=== PATIENT | female | born 1980 | race Caucasian/White ===

== ENCOUNTER 2020-11-27 01:17 | Emergency (ER) | payer SELFPAY ==
[2020-11-27 01:37] VITALS: BP 144/64; PULSE 86; RESP 16; TEMP 36.3; O2SAT 95; BMI 24.7
[2020-11-27 02:30] VITALS: BP 114/66; PULSE 55; RESP 18; O2SAT 97
[2020-11-27 02:35] LABS: Basophils # 0.1 10^3/uL (0.0-0.1); Basophils % 0.7 %; Eosinophils # 0.1 10^3/uL (0.0-0.8); Eosinophils % 1.1 %; Hematocrit 45.6 % (37.0-47.0); Hemoglobin 15.2 g/dL (11.5-15.3); Lymphocytes # 1.5 10^3/uL (0.8-4.8); Lymphocytes % 20.3 %; Mean Corpuscular HGB Conc 33.3 g/dL (30.0-36.0); Mean Corpuscular Hemoglobin 32.1 pg (28.0-34.0); Mean Corpuscular Volume 96.4 fL (81-99); Mean Platelet Volume 10.9 fL (7.4-10.4); Monocytes # 0.4 10^3/uL (0.2-0.9); Monocytes % 5.6 %; Neutrophils # 5.19 10^3/uL (1.8-7.7); Neutrophils % 72.2 %; Nucleated Red Blood Cells % 0 %; Platelet Count 237 10^3/cmm (130-400); Red Blood Count 4.73 10^6/uL (4.1-5.3); Red Cell Distribution Width 12.1 % (12.1-15.1); White Blood Count 7.2 10^3/uL (4.0-10.0)
[2020-11-27 02:55] LABS: HCG, Serum Qual Negative (Negative)
[2020-11-27] MEDS: lidocaine 2% viscous 15 ML, aluminum-mag hydrox-simethicon 30 ML, sucralfate oral liq 1 GM PO (02:55)
[2020-11-27] MEDS: ondansetron 2 mg/ML SDV 2 mL 4 MG IVP (02:55)
[2020-11-27 02:59] LABS: Alanine Aminotransferase 7 U/L (0-33); Albumin Level 4.3 g/dL (3.5-5.2); Alkaline Phosphatase 79 IU/L (35-105); Anion Gap 14.2 (5-19); Aspartate Amino Transferase 11 U/L (0-32); Blood Urea Nitrogen 11 mg/dL (6-20); C Reactive Protein 4.5 mg/L (0.0-4.9); Calcium 8.8 mg/dL (8.5-10.5); Carbon Dioxide 24 mmol/L (22-29); Chloride 102 mmol/L (98-107); Globulin 3.3 g/dL (1.3-4.6); Glomerular Filtration Rate 93.2 mL/min (90-130); Glucose 88 mg/dL (65-115); Lipase 16 U/L (13-60); Osmolality Calculated 281 mOsm/kg (285-295); Potassium 4.2 mmol/L (3.5-5.1); Sodium 136 mmol/L (136-145); Total Bilirubin 0.4 mg/dL (0.15-1.2); Total Protein 7.6 g/dL (6.6-8.7)
[2020-11-27 03:06] LABS: Procalcitonin 0.02 ng/mL (0-0.5)
[2020-11-27 03:20] LABS: Add Urine Microscopic? YES; Bilirubin Urine 1+ (Negative); Blood Urine Neg (Negative); Glucose Urine UA Norm (Normal); Ketones Urine 1+ (Negative); Leukocyte Esterase Urine Trace (Negative); Nitrate Urine Negative (Negative); Protein Urine Neg (Negative); Urine Appearance Clear (CLEAR); Urine Color Yellow (Yellow); Urobilinogen Urine 4 mg/dL (Negative); pH Urine 5 (5-7)
[2020-11-27 03:22] LABS: Add Urine Culture? No; Bacteria Urine 1+ /hpf; Mucus Urine 3+ /hpf; RBC Urine 0-4 /hpf (0-2); Squamous Epithelial Cell Urine 15-25 /hpf (0-5); WBC Urine 0-4 /hpf (0-5)
[2020-11-27 03:31] VITALS: BP 96/64; PULSE 50; RESP 18; O2SAT 95
--- NOTE | 2020-11-27 04:52 | ED_ITS ---
HPI - Abdominal Pain General: Chief Complaint: Abdominal Pain Stated Complaint: ABD Pain\Nausea Time Seen by Provider: 11/27/20 02:27 History of Present Illness: HPI narrative: Healthy 40-year-old female complains of epigastric pain and vomiting for the last 12 hours or so. No fever. No real diarrhea. No cough or shortness of breath Pertinent past history: other Onset (ago): hour(s) Pain Consistency: constant Location: Epigastric and Periumbilical Severity: moderate Quality: cramping and stabbing Radiation: back Migration to: no migration Exacerbating factors: eating Relieving factors: nothing Associated Symptoms: Reports bloating, nausea and vomiting; Denies coffee ground emesis, constipation, diarrhea, fever(s), hematochezia and hematuria Review of Systems Const: Denies: fever(s) Card: Denies: chest pain or palpitations Resp: Denies: dyspnea, productive cough or non-productive cough GI: Reports: nausea, vomiting and bloating; Denies: coffee ground emesis, diarrhea, constipation or hematochezia : Denies: hematuria Physical Exam Const: GENERAL APPEARANCE: well developed ORIENTATION/CONSCIOUSNESS: Yes oriented to person, Yes oriented to place and Yes oriented to time HENMT: COMMON NORMALS: normocephalic, external ears normal and Normal external nose present HEAD & SCALP: normocephalic FACE & SINUS: normal facial exam NOSE: Normal external nose present and No nasal discharge present EXTERNAL EAR: Yes external ears normal THROAT: posterior oropharynx normal; no peritonsillar mass Eye: COMMON NORMALS: Equal, round and reactive pupils present, EOMs intact bilaterally and conjunctivae normal EYELID: eyelids normal CONJUNCTIVA: Yes conjunctivae normal PUPIL: Yes Equal, round and reactive pupils present Neck/C-Spine: GENERAL: No tracheal deviation Chest: COMMONS NORMALS: normal inspection of the chest CHEST: No tenderness Resp: COMMON NORMALS: clear to auscultation bilaterally EFFORT & INSPECTION: No tachypneic, No respiratory distress, No retractions, No uses accessory muscles and No tracheal deviation AUSCULTATION: clear to auscultation bilaterally, no rhonchi, no wheezes and lung sounds not diminished Cardio: COMMON NORMALS: regular rate and regular rhythm RATE: regular rate RHYTHM: regular rhythm HEART SOUNDS: no murmurs PERIPHERAL PULSES: radial pulses present GI: INSPECTION: No abdominal distension AUSCULTATION: No Hyperactive bowel sounds present and No Hypoactive bowel sounds present PALPATION: Yes Tenderness to palpation present (GI) (epigastric), No Guarding due to palpation present (GI) and No Rigid due to palpation PERCUSSION: no dullness to percussion and no tympanic to percussion Neuro: SENSORIUM/ORIENTATION: Yes oriented to person, Yes oriented to place and Yes oriented to time Psych: COMMON NORMALS: mental status grossly normal Skin: COMMON NORMALS: no rashes or lesions noted GENERAL SKIN EXAM: no rashes or lesions noted Course Vital Signs: Vital signs: Vital Signs Temperature 97.3 F L 11/27/20 01:37 Pulse Rate 50 L 11/27/20 03:31 Respiratory Rate 18 11/27/20 03:31 Blood Pressure 96/64 11/27/20 03:31 Pulse Oximetry 95 11/27/20 03:31 MDM - Abdominal Pain MDM Narrative: Medical decision making narrative: 40-year-old female with epigastric pain, tenderness, and vomiting. White blood cell count of 7.2 other laboratory is normal. She improved with GI cocktail. She will be allowed home with Prevacid, Carafate, and gastro, symptomatic treatment for gastritis. She was not tender over her gallbladder. Lab Data: Labs: Lab Results 11/27/20 11/27/20 11/27/20 Range/Units 02:25 02:25 02:25 WBC 7.2 (4.0-10.0) 10^3/ uL RBC 4.73 (4.1-5.3) 10^6/u L Hgb 15.2 (11.5-15.3) g/dL Hct 45.6 (37.0-47.0) % MCV 96.4 (81-99) fL MCH 32.1 (28.0-34.0) pg MCHC 33.3 (30.0-36.0) g/dL RDW 12.1 (12.1-15.1) % Plt Count 237 (130-400) 10^3/c mm MPV 10.9 H (7.4-10.4) fL Neut % (Auto) 72.2 % Lymph % (Auto) 20.3 % [place] % (Auto) 5.6 % Eos % (Auto) 1.1 % Baso % (Auto) 0.7 % Neut # (Auto) 5.19 (1.8-7.7) 10^3/u L Lymph # (Auto) 1.5 (0.8-4.8) 10^3/u L [place] # (Auto) 0.4 (0.2-0.9) 10^3/u L Eos # (Auto) 0.1 (0.0-0.8) 10^3/u L Baso # (Auto) 0.1 (0.0-0.1) 10^3/u L Nucleated RBC % (a uto) 0 % Nucleated RBCs # 0.0 /100WBC Sodium 136 (136-145) mmol/L Potassium 4.2 (3.5-5.1) mmol/L Chloride 102 (98-107) mmol/L Carbon Dioxide 24 (22-29) mmol/L Anion Gap 14.2 (5-19) BUN 11 (6-20) mg/dL Creatinine 0.7 (0.5-0.9) mg/dL GFR Calculation 93.2 (90-130) mL/min Glucose 88 (65-115) mg/dL Calculated Osmolal ity 281 L (285-295) mOsm/k g Calcium 8.8 (8.5-10.5) mg/dL Total Bilirubin 0.4 (0.15-1.2) mg/dL AST 11 (0-32) U/L ALT 7 (0-33) U/L Alkaline Phosphata se 79 (35-105) IU/L C-Reactive Protein 4.5 (0.0-4.9) mg/L Total Protein 7.6 (6.6-8.7) g/dL Albumin 4.3 (3.5-5.2) g/dL Globulin 3.3 (1.3-4.6) g/dL Lipase 16 (13-60) U/L Procalcitonin 0.02 (0-0.5) ng/mL HCG, Qual Negative (Negative) Urine Color (Yellow) Urine Appearance (CLEAR) Urine pH (5-7) Ur Specific Gravit y (1.005-1.030) Urine Protein (Negative) Urine Glucose (UA) (Normal) Urine Ketones (Negative) Urine Blood (Negative) Urine Nitrate (Negative) Urine Bilirubin (Negative) Urine Urobilinogen (Negative) mg/dL Ur Leukocyte Casi ase (Negative) Urine RBC (0-2) /hpf Urine WBC (0-5) /hpf Ur Squamous Epith Cells (0-5) /hpf Amorphous Sediment Urine Bacteria (NONE) /hpf Urine Mucus /hpf 11/27/20 Range/Units 02:25 WBC (4.0-10.0) 10^3/ uL RBC (4.1-5.3) 10^6/u L Hgb (11.5-15.3) g/dL Hct (37.0-47.0) % MCV (81-99) fL MCH (28.0-34.0) pg MCHC (30.0-36.0) g/dL RDW (12.1-15.1) % Plt Count (130-400) 10^3/c mm MPV (7.4-10.4) fL Neut % (Auto) % Lymph % (Auto) % [place] % (Auto) % Eos % (Auto) % Baso % (Auto) % Neut # (Auto) (1.8-7.7) 10^3/u L Lymph # (Auto) (0.8-4.8) 10^3/u L [place] # (Auto) (0.2-0.9) 10^3/u L Eos # (Auto) (0.0-0.8) 10^3/u L Baso # (Auto) (0.0-0.1) 10^3/u L Nucleated RBC % (a uto) % Nucleated RBCs # /100WBC Sodium (136-145) mmol/L Potassium (3.5-5.1) mmol/L Chloride (98-107) mmol/L Carbon Dioxide (22-29) mmol/L Anion Gap (5-19) BUN (6-20) mg/dL Creatinine (0.5-0.9) mg/dL GFR Calculation (90-130) mL/min Glucose (65-115) mg/dL Calculated Osmolal ity (285-295) mOsm/k g Calcium (8.5-10.5) mg/dL Total Bilirubin (0.15-1.2) mg/dL AST (0-32) U/L ALT (0-33) U/L Alkaline Phosphata se (35-105) IU/L C-Reactive Protein (0.0-4.9) mg/L Total Protein (6.6-8.7) g/dL Albumin (3.5-5.2) g/dL Globulin (1.3-4.6) g/dL Lipase (13-60) U/L Procalcitonin (0-0.5) ng/mL HCG, Qual (Negative) Urine Color Yellow (Yellow) Urine Appearance Clear (CLEAR) Urine pH 5 (5-7) Ur Specific Gravit y 1.030 (1.005-1.030) Urine Protein Neg (Negative) Urine Glucose (UA) Norm (Normal) Urine Ketones 1+ H (Negative) Urine Blood Neg (Negative) Urine Nitrate Negative (Negative) Urine Bilirubin 1+ H (Negative) Urine Urobilinogen 4 H (Negative) mg/dL Ur Leukocyte Casi ase Trace H (Negative) Urine RBC 0-4 H (0-2) /hpf Urine WBC 0-4 H (0-5) /hpf Ur Squamous Epith Cells 15-25 H (0-5) /hpf Amorphous Sediment Not Reportable Urine Bacteria 1+ H (NONE) /hpf Urine Mucus 3+ /hpf Discharge Plan Discharge Patient Disposition: Home Clinical Impression: Gastritis Qualifiers: Gastritis type: unspecified gastritis Chronicity: acute Gastritis bleeding: without bleeding Qualified Code(s): K29.00 - Acute gastritis without bleeding Condition: Stable Prescriptions: New Prevacid 30 mg capsule,delayed release(DR/EC) 30 mg PO DAILY Qty: 30 RF: 0 Carafate 1 gram tablet 1 g PO TID 28 Days Qty: 84 RF: 0 Zofran 4 mg tablet 4 mg PO Q6H PRN (Reason: nausea and vomiting) Qty: 10 RF: 0 Discharge Orders: Discharge ED (Routine); Ordered 11/27/20 Ordered By: Bertrand Thompson Discharge Diet: Advance as tolerated Discharge Activity: Increase activity as tolerated Patient Instructions: Gastritis (ED) Activity Restrictions/Additional Instructions: Return for fever greater than 100, vomiting liquids or medications despite treatment, worsening pain despite treatment, any other concerning conditions. Coding Level of Care Code ED Carrot Tier for Royer Bowman
[2020-11-27 15:25] LABS: Coronavirus Test Green County Not Detected
== END 2020-11-27 04:21 | disposition home or self-care (01) ==
PROVIDERS: Emergency Provider Emergency Medicine
DX: K29.00 Acute gastritis without bleeding (principal); Z20.822 Contact with and (suspected) exposure to COVID-19
CPT/HCPCS: 80053; 81001; 83690; 84145; 84703; 85025; 86140; 87635; 96374; 99283; J2405

== ENCOUNTER 2021-05-18 12:46 | Emergency (ER) | payer SELFPAY ==
[2021-05-18 13:03] VITALS: BP 129/79; PULSE 90; RESP 16; TEMP 36.8; O2SAT 97; BMI 23.3
--- NOTE | 2021-05-18 13:15 | W.ED.BACK ---
HPI - Back Pain/Injury General: Chief Complaint: Back Pain/Injury Stated Complaint: Extreme ABD PAIN FELT LIKE SOMETHING BURST Time Seen by Provider: 05/18/21 13:15 Course Vital Signs: Vital signs: Vital Signs Temperature 98.3 F 05/18/21 13:03 Pulse Rate 90 05/18/21 13:03 Respiratory Rate 16 05/18/21 13:03 Blood Pressure 129/79 05/18/21 13:03 Pulse Oximetry 97 05/18/21 13:03 Discharge Plan Discharge Prescriptions: No Action Prevacid 30 mg capsule,delayed release(DR/EC) 30 mg PO DAILY Qty: 30 RF: 0 Zofran 4 mg tablet 4 mg PO Q6H PRN (Reason: nausea and vomiting) Qty: 10 RF: 0 Coding Level of Care Code ED Mobile Service Rv Technician for Royer Bowman
--- NOTE | 2021-05-18 13:57 | US_ITS ---
WS: [id number] TRANSABDOMINAL PELVIC AND TRANSVAGINAL PELVIC ULTRASOUND HISTORY: L pelvic pain COMPARISON: None available. Uterus: 9.9 cm x 5.7 cm x 5.5 cm. Normal size anteverted uterus. Small nabothian cysts along the cerv ix. Fundus of the uterus is mildly bulbous. No discrete mass identified. Endometrium: 1.4 cm. Normal homogeneity. No mass or increased fluid. Right ovary: 2.9 cm x 1.7 cm x 1.7 cm. Ovaries normal size. There are a few small follicles. Normal D oppler is present. Left ovary: 2.3 cm x 1.4 cm x 1.1 cm. Normal size ovary. There are a few small follicles. Normal vasc ularity. No free fluid is identified. Fluid-filled loops of bowel are noted bilaterally within the pelvis causing some shadowing and obscur ing the adnexa. There is a focal defect within the lower abdominal wall which is probably a scar. US/US pelvic with transvaginal IMPRESSION: 1. No acute pelvic abnormalities are identified. 2. Small bilateral ovarian follicles. 3. No free fluid.
--- NOTE | 2021-05-18 13:57 | CT_ITS ---
WS: [id number] CT LUMBAR SPINE, noncontrast. HISTORY: back pain TECHNIQUE: Contiguous 2.5 mm axial imaging are performed. Sagittal and coronal reformats are submitte d and reviewed. [facility] use at least one of these dose optimization techni ques: automated exposure control; mA and/or kV adjustment per patient size (includes targeted exams w here dose is matched to clinical indication); or iterative reconstruction. IV contrast: None DLP: 2178.31 mGy.cm COMPARISON: None available. Normal posterior lumbar alignment. No fracture or bone destruction. No significant disc space narrowi ng. No osteoblastic or osteolytic bone lesions. L1-2: Normal. L2-3: Normal. L3-4: Mild annular disc bulging and facet arthritis. L4-5: Mild annular disc bulging with a LEFT paracentral disc protrusion contacting the LEFT traversin g L5 nerve root. Mild LEFT foraminal narrowing. L5-S1: Mild broad-based disc bulging without stenosis. Visualized retroperitoneum is negative. There are a few calcifications within the abdominal aorta. CT/CT lumbar spine wo con* [id number] IMPRESSION: 1. No acute lumbar spine fracture. 2. LEFT paracentral disc protrusion at L4-5 contacting the L5 nerve root. 3. Otherwise no significant stenosis.
--- NOTE | 2021-05-18 13:58 | ED_ITS ---
HPI - Back Pain/Injury General: Chief Complaint: Back Pain/Injury Stated Complaint: Extreme ABD PAIN FELT LIKE SOMETHING BURST Time Seen by Provider: 05/18/21 13:15 Source: patient Mode of arrival: ambulatory Limitations: no limitations History of Present Illness: HPI Narrative: Patient is a 40-year-old female who presents to ED today with a complaint of back and pelvic pain. Patient tells me she has a chronic history of ovarian cysts and chronically suffers from left- sided pelvic pains. Patient states earlier today she was bent over cleaning a fireplace when she immediately felt a sharp burning sensation to her left lower back and states it felt like somebody hit her with a sledgehammer. She states pain seems to radiate down into her buttock and into her abdomen/groin. Denies radicular symptoms into her left lower extremity. She is not complaining of any vaginal bleeding. She has not had any dysuria, hematuria, frequency, hesitancy. Denies . MD elicited complaint: back pain Onset (ago): hour(s) Timing: constant Severity: severe Pain scale (0-10): 10 Quality: burning and sharp Location: left lower back Radiation: abdomen Exacerbating factors: movement Relieving factors: none Context: bending Associated symptoms: Reports abdominal pain and difficulty walking; Deny chills, dysuria, fatigue, fever(s), hematuria, nausea or vomiting Work related injury: No Review of Systems Const: Denies: fever(s), chills, body aches, fatigue or malaise Card: Denies: chest pain Resp: Denies: dyspnea GI: Reports: abdominal pain; Denies: nausea, vomiting or diarrhea : Reports: pelvic pain; Denies: flank pain, dysuria, hematuria, vaginal bleeding or vaginal discharge Musc: Reports: back pain; Denies: neck pain, extremity pain, extremity swelling, joint pain or joint swelling Skin/Breast: Denies: rash Neuro: Reports: difficulty walking; Denies: headache(s), numbness in extremities, weakness in extremities, sensory changes or dizziness Physical Exam Const: COMMON NORMALS: average body habitus, patient oriented x3, no limitations, healthy appearing, alert and well nourished GENERAL APPEARANCE: cooperative and in distress (appears uncomfortable secondary to pain) ORIENTATION/CONSCIOUSNESS: Yes awake, Yes oriented to person, Yes oriented to place and Yes oriented to time HENMT: COMMON NORMALS: normocephalic and atraumatic HEAD & SCALP: normal to inspection, normocephalic and atraumatic Resp: COMMON NORMALS: normal respiratory effort and clear to auscultation bilaterally AUSCULTATION: clear to auscultation bilaterally Cardio: COMMON NORMALS: regular rate and regular rhythm RATE: regular rate RHYTHM: regular rhythm GI: COMMON NORMALS: Normal to inspection, nondistended, normoactive bowel sounds present, Soft to palpation, No hepatosplenomegaly present and no masses INSPECTION: Yes normal to inspection PALPATION: Yes Soft to palpation, Yes Tenderness to palpation present (GI) (L lower abdomen/pelvis) and Yes No hepatosplenomegaly present : COMMON NORMALS: Yes no CVA tenderness BLADDER/KIDNEY EXAM: Yes no CVA tenderness Back/Pelvis: COMMON NORMALS: no CVA tenderness THORACIC SPINE/UPPER BACK: Yes normal to inspection, No thoracic spinal tenderness and No paraspinal muscle tenderness LUMBAR SPINE/LOWER BACK: Yes ROM limited, Yes paraspinal muscle tenderness Lumbar paraspinal muscle tenderness: left and No paraspinal muscle spasm Extremity: COMMON NORMALS: normal to inspection and full ROM GENERAL: Yes normal exam except as noted Neuro: COMMON NORMALS: patient oriented x3, moves all extremities, no focal motor deficits and no sensory deficits noted SENSORIUM/ORIENTATION: Yes alert, Yes oriented to person, Yes oriented to place and Yes oriented to time Skin: COMMON NORMALS: no rashes or lesions noted GENERAL SKIN EXAM: no rashes or lesions noted Course Vital Signs: Vital signs: Vital Signs Temperature 98.3 F 05/18/21 13:03 Pulse Rate 90 05/18/21 13:03 Respiratory Rate 16 05/18/21 13:03 Blood Pressure 129/79 05/18/21 13:03 Pulse Oximetry 97 05/18/21 13:03 MDM - Back Pain/Injury MDM Narrative: Medical decision making narrative: Patient here with complaints of severe lower back pain radiating around into her buttock and abdomen. She does report history of ovarian cysts. Patient presented in significant discomfort which was controlled with IV medications. Labs are overall fairly unremarkable. US of her pelvis is essentially normal. CT lumbar does show disc protrusion of L4-L5 which would fit with her VIKA. I have no concerns of acute intra-abdominal surgical emergencies based on her acute onset after bending over. Patient is telling me she lives alone and bathrooms are on different levels and is requesting a walker/commode. These were written. Recommend follow up with PCP. Return to ED precautions verbally given to patient. Lab Data: Labs: Lab Results 05/18/21 05/18/21 05/18/21 14:00 14:00 14:00 WBC 9.3 10^3/uL 10^3/ uL (4.0-10.0) RBC 4.35 10^6/uL 10^6 /uL (4.1-5.3) Hgb 13.8 g/dL g/dL (11.5-15.3) Hct 40.9 % % (37.0-47.0) MCV 94.0 fl fl (81-99) MCH 31.7 pg pg (28.0-34.0) MCHC 33.7 g/dL g/dL (30.0-36.0) RDW 12.7 % % (12.1-15.1) Plt Count 199 10^3/cmm 10^3 /cmm (130-400) MPV 11.3 fL H fL (7.4-10.4) Neut % (Auto) 72.4 % % Lymph % (Auto) 20.5 % % [place] % (Auto) 5.3 % % Eos % (Auto) 0.9 % % Baso % (Auto) 0.5 % % Neut # (Auto) 6.73 10^3/uL 10^3 /uL (1.8-7.7) Lymph # (Auto) 1.9 10^3/uL 10^3/ uL (0.8-4.8) [place] # (Auto) 0.5 10^3/uL 10^3/ uL (0.2-0.9) Eos # (Auto) 0.1 10^3/uL 10^3/ uL (0.0-0.8) Baso # (Auto) 0.1 10^3/uL 10^3/ uL (0.0-0.1) Nucleated RBC % (a uto) 0 % % Nucleated RBCs # 0.0 /100WBC /100W BC Sodium 133 mmol/L L mmol /L (136-145) Potassium 4.2 mmol/L mmol/L (3.5-5.1) Chloride 100 mmol/L mmol/L (98-107) Carbon Dioxide 24 mmol/L mmol/L (22-29) Anion Gap 13.2 (5-19) BUN 10 mg/dL mg/dL (6-20) Creatinine 0.7 mg/dL mg/dL (0.5-0.9) GFR Calculation 93.2 mL/min mL/mi n (90-130) Glucose 87 mg/dL mg/dL (65-115) Calculated Osmolal ity 274 mOsm/kg L mOs m/kg (285-295) Calcium 8.4 mg/dL L mg/dL (8.5-10.5) Total Bilirubin 0.3 mg/dL mg/dL (0.15-1.2) AST 48 U/L H U/L (0-32) ALT 44 U/L H U/L (0-33) Alkaline Phosphata se 81 IU/L IU/L (35-105) Total Protein 6.6 g/dL g/dL (6.6-8.7) Albumin 4.0 g/dL g/dL (3.5-5.2) Globulin 2.6 g/dL g/dL (1.3-4.6) HCG, Qual Negative (Negative) 05/18/21 15:00 WBC RBC Hgb Hct MCV MCH MCHC RDW Plt Count MPV Neut % (Auto) Lymph % (Auto) [place] % (Auto) Eos % (Auto) Baso % (Auto) Neut # (Auto) Lymph # (Auto) [place] # (Auto) Eos # (Auto) Baso # (Auto) Nucleated RBC % (a uto) Nucleated RBCs # Sodium Potassium Chloride Carbon Dioxide Anion Gap BUN Creatinine GFR Calculation Glucose Calculated Osmolal ity Calcium Total Bilirubin AST ALT Alkaline Phosphata se Total Protein Albumin Globulin HCG, Qual Negative (Negative) Imaging Data^: CT lumbar: Radiologist's impression: [address] [id number] Scan ReportSigned Patient: Jennifer Zuniga #: [id number]: [id number] t#:[id number]/Sex: 40 / FADM Date: 05/18/21Loc: ERRoom/Bed:Attending Dr: Ordering Provider/Ordering MD: Triny Barton Date of Service: 05/18/21 Procedure(s): CT lumbar spine wo con* [id number] Accession Number(s): [id number] Report Number: [id number] WS: [id number] CT LUMBAR SPINE, noncontrast. HISTORY: back pain TECHNIQUE: Contiguous 2.5 mm axial imaging are performed. Sagittal and coronal reformats are submitted and reviewed. All CT scans at [facility] use at least one of these dose optimization techniques: automated exposure control; mA and/or kV adjustment per patient size (includes targeted exams where dose is matched to clinical indication); or iterative reconstruction. IV contrast: None DLP: 2178.31 mGy.cm COMPARISON: None available. Normal posterior lumbar alignment. No fracture or bone destruction. No significant disc space narrowing. No osteoblastic or osteolytic bone lesions. L1-2: Normal. L2-3: Normal. L3-4: Mild annular disc bulging and facet arthritis. L4-5: Mild annular disc bulging with a LEFT paracentral disc protrusion contacting the LEFT traversing L5 nerve root. Mild LEFT foraminal narrowing. L5-S1: Mild broad-based disc bulging without stenosis. Visualized retroperitoneum is negative. There are a few calcifications within the abdominal aorta. CT/CT lumbar spine wo con* [id number] IMPRESSION: 1. No acute lumbar spine fracture. 2. LEFT paracentral disc protrusion at L4-5 contacting the L5 nerve root. 3. Otherwise no significant stenosis. Dictated By:Betsy Spencer DOSigned By:Betsy Spencer DOSigned Date/Time:05/18/21 1535DD/ 1531 US TV: Radiologist's impression: [facility] [place] [address].[place], [place] [address]Lkdrwoxelo ReportSigned Patient: Jennifer Zuniga #: [id number]: [id number]#:[id number]/Sex: 40 / FADM Date: 05/18/21Loc: ERRoom/Bed:Attending Dr: Ordering Provider/Ordering MD: Triny Barton Date of Service: 05/18/21 Procedure(s): US pelvic with transvaginal Accession Number(s): [id number] Report Number: [id number] WS: [id number] TRANSABDOMINAL PELVIC AND TRANSVAGINAL PELVIC ULTRASOUND HISTORY: L pelvic pain COMPARISON: None available. Uterus: 9.9 cm x 5.7 cm x 5.5 cm. Normal size anteverted uterus. Small nabothian cysts along the cervix. Fundus of the uterus is mildly bulbous. No discrete mass identified. Endometrium: 1.4 cm. Normal homogeneity. No mass or increased fluid. Right ovary: 2.9 cm x 1.7 cm x 1.7 cm. Ovaries normal size. There are a few small follicles. Normal Doppler is present. Left ovary: 2.3 cm x 1.4 cm x 1.1 cm. Normal size ovary. There are a few small follicles. Normal vascularity. No free fluid is identified. Fluid-filled loops of bowel are noted bilaterally within the pelvis causing some shadowing and obscuring the adnexa. There is a focal defect within the lower abdominal wall which is probably a scar. US/US pelvic with transvaginal IMPRESSION: 1. No acute pelvic abnormalities are identified. 2. Small bilateral ovarian follicles. 3. No free fluid. Dictated By:Betsy Spencer DOSigned By:Betsy Spencer DOSigned Date/Time:05/18/211546DD/ 154 Discharge Plan Discharge Patient Disposition: Home Clinical Impression: L4-L5 disc bulge Condition: Stable Prescriptions: New cyclobenzaprine 10 mg tablet 10 mg PO TID Qty: 14 RF: 0 ibuprofen 800 mg tablet 800 mg PO Q8H PRN (Reason: pain) Qty: 20 RF: 0 Medrol (Timo) 4 mg tablets,dose pack See Rx Instructions .ROUTE .COMPLEX Qty: 21 RF: 0 No Action Prevacid 30 mg capsule,delayed release(DR/EC) 30 mg PO DAILY Qty: 30 RF: 0 Zofran 4 mg tablet 4 mg PO Q6H PRN (Reason: nausea and vomiting) Qty: 10 RF: 0 Discharge Orders: Discharge ED (Routine); Ordered 05/18/21 Ordered By: Triny Barton Other Ambulatory Orders: DME: [employer] (Order) Location: None Selected Ordered By: Triny Barton DME: Walker (Order) Location: None Selected Ordered By: Triny Barton Activity Restrictions/Additional Instructions: PLEASE FOLLOW UP WITH PRIMARY CARE IN 1-2 WEEKS IF SYMPTOMS PERSIST. Coding Level of Care Code ED Substation Technician for Anag Fwd Exam Comprehensive
[2021-05-18 14:18] LABS: Basophils # 0.1 10^3/uL (0.0-0.1); Basophils % 0.5 %; Eosinophils # 0.1 10^3/uL (0.0-0.8); Eosinophils % 0.9 %; Hematocrit 40.9 % (37.0-47.0); Hemoglobin 13.8 g/dL (11.5-15.3); Lymphocytes # 1.9 10^3/uL (0.8-4.8); Lymphocytes % 20.5 %; Mean Corpuscular HGB Conc 33.7 g/dL (30.0-36.0); Mean Corpuscular Hemoglobin 31.7 pg (28.0-34.0); Mean Platelet Volume 11.3 fL (7.4-10.4); Monocytes # 0.5 10^3/uL (0.2-0.9); Monocytes % 5.3 %; Neutrophils # 6.73 10^3/uL (1.8-7.7); Neutrophils % 72.4 %; Nucleated Red Blood Cells % 0 %; Platelet Count 199 10^3/cmm (130-400); Red Blood Count 4.35 10^6/uL (4.1-5.3); Red Cell Distribution Width 12.7 % (12.1-15.1); White Blood Count 9.3 10^3/uL (4.0-10.0)
[2021-05-18 14:34] LABS: HCG, Serum Qual Negative (Negative)
[2021-05-18 14:37] LABS: Alanine Aminotransferase 44 U/L (0-33); Alkaline Phosphatase 81 IU/L (35-105); Anion Gap 13.2 (5-19); Aspartate Amino Transferase 48 U/L (0-32); Blood Urea Nitrogen 10 mg/dL (6-20); Calcium 8.4 mg/dL (8.5-10.5); Carbon Dioxide 24 mmol/L (22-29); Chloride 100 mmol/L (98-107); Globulin 2.6 g/dL (1.3-4.6); Glomerular Filtration Rate 93.2 mL/min (90-130); Glucose 87 mg/dL (65-115); Osmolality Calculated 274 mOsm/kg (285-295); Potassium 4.2 mmol/L (3.5-5.1); Sodium 133 mmol/L (136-145); Total Bilirubin 0.3 mg/dL (0.15-1.2); Total Protein 6.6 g/dL (6.6-8.7)
[2021-05-18 15:13] LABS: HCG Qualitative Urine. Negative (Negative)
[2021-05-18 16:53] LABS: Add Urine Microscopic? YES; Bilirubin Urine Neg (Negative); Blood Urine Neg (Negative); Glucose Urine UA Norm (Normal); Ketones Urine Negative (Negative); Leukocyte Esterase Urine Negative (Negative); Nitrate Urine Negative (Negative); Protein Urine Neg (Negative); RBC Urine RARE /hpf (0-2); Urine Appearance SL Hazy (CLEAR); Urine Color Straw (Yellow); Urobilinogen Urine Neg (Negative); WBC Urine RARE /hpf (0-5); pH Urine 5 (5-7)
[2021-05-18] MEDS: ketorolac 30 mg/mL INJ IVP (16:53)
[2021-05-18 16:54] LABS: Add Urine Culture? No; Bacteria Urine 2+ /hpf; Squamous Epithelial Cell Urine 15-25 /hpf (0-5)
[2021-05-18] MEDS: orphenadrine 30 mg/mL Inj 2 mL 60 MG IVP (16:54)
[2021-05-18 17:40] VITALS: PULSE 68; RESP 18; O2SAT 98
== END 2021-05-18 17:40 | disposition home or self-care (01) ==
PROVIDERS: Emergency Medicine; Emergency Provider Physician Assistant
DX: M51.26 Other intervertebral disc displacement, lumbar region (principal); Z87.42 Personal history of other diseases of the female genital tract
CPT/HCPCS: 12345; 72131; 76830; 76856; 80053; 81001; 81025; 84703; 85025; 96374; 99283; J1885; J2360

== ENCOUNTER 2021-12-29 22:40 | Emergency (ER) | payer BC, MEDICAID, SELFPAY ==
[2021-12-29 22:47] VITALS: BP 166/92; PULSE 89; RESP 18; TEMP 36.4
--- NOTE | 2021-12-30 00:14 | USR_ITS ---
PROCEDURE INFORMATION: Exam: US Duplex Left Lower Extremity Veins, Limited Exam date and time: 12/30/2021 12:29 AM Age: 41 years old Clinical indication: Pain; Swelling (edema) of limb; Lower extremity, left; Leg, lower; Additional info: Pain and swelling TECHNIQUE: Imaging protocol: Real-time Duplex ultrasound of the Left Lower Extremity with 2-D ramirez scale, color Doppler flow and spectral waveform analysis with image documentation. Limited exam focused on the left lower extremity veins. COMPARISON: US pelvic with transvaginal 05/18/2021 2:35 PM FINDINGS: Left deep veins: Unremarkable. The common femoral, femoral, proximal profunda femoral and popliteal veins are patent without thrombus. Normal Doppler waveforms. Normal compressibility and/or augmentation response. Left superficial veins: Unremarkable. Saphenofemoral junction is patent without thrombus. Soft tissues: Unremarkable. US/CV venous duplex [facility] [id number] IMPRESSION: No evidence of deep vein thrombosis.
--- NOTE | 2021-12-30 01:08 | W.ED.EXTPRO ---
HPI - Extremity Problem General: Chief complaint: Extremity Problem,Nontraumatic Stated complaint: left leg pain Time Seen by Provider: 12/29/21 22:55 History of Present Illness: 41 yo female patient presents with chronic mancuso pain. Pt states this started over a year ago and is still present. Pt states whenthis pain started she stepped down off a ladder and had immediate xrays done and xrays again since then all have been negative. pt states she continues to have pinpoint pain to her mancuso. Pt states elevation seems to help. Pt denies any hx of dvt.. pt denies fever, chest pain or SOB Associated symptoms: Deny chest pain, fever(s) or rash Review of Systems Const: Denies: fever(s), chills, body aches, change in appetite, change in weight, fatigue, malaise or diaphoresis Eyes: Denies: change in vision, blurry vision, blind spots, photophobia, eye discomfort, eye discharge, eye redness, floaters or seeing flashes ENMT: Denies: throat pain, uvular edema, enlarged tonsils, odynophagia, hoarseness, mouth pain, swelling of lips/tongue, oral sores, bleeding gums, dental pain, dry mouth, ear or mastoid pain, ear discharge, change in hearing, tinnitus, disequilibrium, nasal discharge, nasal congestion, post nasal drip or sinus pain Card: Denies: chest pain, palpitations, irregular heart rhythm, edema, swelling of feet/ankles, lightheadedness, syncope, pre-syncope, dyspnea on exertion, orthopnea, leg pain with exertion or acrocyanosis Resp: Denies: dyspnea, productive cough, non-productive cough, wheezing, stridor, pain on inspiration, change in phlegm color, hemoptysis or chest congestion GI: Denies: abdominal pain, nausea, vomiting, hematemesis, dysphagia, diarrhea, constipation, GI cramping, change in bowel habits or rectal pain : Denies: flank pain, difficulty voiding, dysuria, urinary frequency, urinary urgency, urinary hesitancy or hematuria Musc: Reports: extremity pain; Denies: neck pain, back pain, extremity swelling, joint pain, joint swelling, joint redness, joint warmth or deformity Skin/Breast: Denies: rash, pruritus, erythema, sores, new lesions, changes in skin color or dry skin Neuro: Denies: headache(s), numbness in extremities, weakness in extremities, sensory changes, lack of coordination, difficulty walking, frequent falls, dizziness, vertigo, confusion, behavioral changes, Slurred speech present, difficulty communicating thoughts or seizure-like activity Psych: Denies: anxiety, depression, suicidal ideation or homicidal ideation Endo: Denies: polyuria, polydipsia, tired all the time, cold intolerance, excessive sweating, flushing, hot flashes or heat intolerance Ced/Lymph: Denies: easy bruising, easy bleeding, petechiae, purpura, enlarged lymph nodes or tender lymph nodes All/Imm: Denies: urticaria, throat swelling, tongue swelling, facial swelling, acute wheezing or itchy eyes PFSH ED PFSH: Social History Smoking and tobacco status: current every day smoker Physical Exam Const: COMMON NORMALS: no acute distress, average body habitus, patient oriented x3, no limitations, healthy appearing, alert and well nourished HENMT: THROAT: no uvular edema Neck/C-Spine: COMMON NORMALS: no JVD Resp: COMMON NORMALS: normal respiratory effort, No retractions, No use of accessory muscles, clear to auscultation bilaterally and percussion normal AUSCULTATION: clear to auscultation bilaterally PERCUSSION: percussion normal Cardio: COMMON NORMALS: no JVD, regular rate, regular rhythm, S1 normal heart sound present, S2 normal heart sound present, No gallops present (Cardio), No clicks present (Cardio), No murmurs present (Cardio), No rub (Cardio) and Peripheral pulses 2+ throughout RATE: regular rate RHYTHM: regular rhythm HEART SOUNDS: S1 normal heart sound present and S2 normal heart sound present PERIPHERAL PULSES: Peripheral pulses 2+ throughout Extremity: LEFT LOWER EXTREMITY: Yes lower leg Left lower leg: Yes palpation (tender) Neuro: COMMON NORMALS: patient oriented x3 SENSORIUM/ORIENTATION: Yes alert Course Vital Signs: Vital signs: Vital Signs Temperature 97.5 F L 12/29/21 22:47 Pulse Rate 89 12/29/21 22:47 Respiratory Rate 18 12/29/21 22:47 Blood Pressure 166/92 12/29/21 22:47 MDM - Extremity (Nontraumatic) Medical Decision Making Patient is well appearing non toxic and in no acute distress. pt is very anxious and states she has hx of aniety and does not want anything but motrin. pt is NVI distally. xray negative for DVT. exam findings are normal. will discuss stretches with patient, good shoes and have her follow up with PCP for follow up Lab Data Radiology Impressions Venous Duplex 12/30/21 00:14 IMPRESSION: No evidence of deep vein thrombosis. 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
== END 2021-12-30 01:57 | disposition home or self-care (01) ==
PROVIDERS: Emergency Provider Registered Nurse
DX: M79.605 Pain in left leg (principal); F17.210 Nicotine dependence, cigarettes, uncomplicated
CPT/HCPCS: 93971; 99283

== ENCOUNTER 2022-09-27 22:36 | Emergency (ER) | payer BC, MEDICAID, SELFPAY ==
[2022-09-27 22:44] VITALS: BP 129/79; PULSE 71; RESP 15; TEMP 36.7; O2SAT 97
[2022-09-28] MEDS: tizanidine 4 mg Tablet PO (00:20)
[2022-09-28] MEDS: ketorolac 10 mg Tablet PO (00:20)
--- NOTE | 2022-09-28 05:13 | ED_ITS ---
HPI - Extremity Problem General: Chief complaint: Extremity Problem,Nontraumatic Stated complaint: shoulder pain/numbness Time Seen by Provider: 09/27/22 23:46 Source: patient Mode of arrival: ambulatory Limitations: no limitations History of Present Illness: Patient presents emergency department today for evaluation treatment of left upper/mid back pain. Patient states she denies any known injury prior to onset of her pain as this pain did wake her from sleep but, indicates she has a large mastiff puppy that weighs approximately 60 pounds that she did attempt to lift and place in her truck several days ago. Patient denies tingling or numbness in the left arm. She states that when she extends her left arm and leans forward she can alleviate the discomfort in her back. Review of Systems General: Reports: 10 or more systems reviewed and unremarkable except in HPI and below PFSH ED PFSH: Social History Smoking and tobacco status: current every day smoker Physical Exam Const: COMMON NORMALS: no acute distress, patient oriented x3 and alert HENMT: COMMON NORMALS: normocephalic, atraumatic and hearing grossly normal bilaterally HEAD & SCALP: normocephalic and atraumatic Eye: COMMON NORMALS: Equal, round and reactive pupils present, EOMs intact bilaterally and conjunctivae normal CONJUNCTIVA: Yes conjunctivae normal PUPIL: Yes Equal, round and reactive pupils present Neck/C-Spine: COMMON NORMALS: full ROM and no JVD Lymph: LYMPHATIC: no lymphadenopathy noted Resp: COMMON NORMALS: normal respiratory effort, No retractions and No use of accessory muscles Cardio: COMMON NORMALS: no JVD and regular rate RATE: regular rate Back/Pelvis: OTHER: Patient has reproducible pain on examination along the medial edge of the left shoulder blade. Nontender palpation along the vertebral column with minimal discomfort to the left lateral paravertebral musculature. Patient is nontender around the lateral ribs Extremity: OTHER: Full range of motion to the upper extremities with back pain relief with the extension of the left upper extremity. Neuro: COMMON NORMALS: patient oriented x3 SENSORIUM/ORIENTATION: Yes alert Psych: COMMON NORMALS: mental status grossly normal, Normal thought process present, cooperative and normal affect THOUGHT PROCESS: Normal thought process present Skin: COMMON NORMALS: no rashes or lesions noted and turgor normal GENERAL SKIN EXAM: no rashes or lesions noted and turgor normal Course Vital Signs: Vital signs: Vital Signs Temperature 98.1 F 09/27/22 22:44 Pulse Rate 71 09/27/22 22:44 Respiratory Rate 15 09/27/22 22:44 Blood Pressure 129/79 09/27/22 22:44 Pulse Oximetry 97 09/27/22 22:44 Oxygen Delivery Me thod Room Air 09/27/22 22:44 MDM - Extremity (Nontraumatic) Medical Decision Making Patient presents to the ER today for what appears to be musculoskeletal back pain. Patient's pain is reproducible on examination and is point specific along the medial edge of the left shoulder blade. Patient has no respiratory symptoms and distribution does not seem consistent with an early onset shingles. 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 We discussed other options at home for musculoskeletal comfort including hot soaks or heating pads. Went over return precautions. Patient verbalized understanding agreement to treatment plan. Differential Diagnosis Likely herpes zoster (Back strain, intercostal strain, rib contusion) Discharge Plan Discharge Patient Disposition: Home Clinical Impression: Spasm of thoracic back muscle Condition: Stable Prescriptions: New tizanidine 4 mg capsule 4 mg PO Q8H PRN (Reason: muscle spasticity) Qty: 20 0RF methylprednisolone 4 mg tablets,dose pack See Rx Instructions PO .COMPLEX Qty: 21 0RF Rx Instructions: orally per package directions naproxen 500 mg tablet 500 mg PO BID PRN (Reason: pain) Qty: 20 0RF No Action hydrocodone-acetaminophen 5-325 mg tablet 1 tab PO Q6H PRN cyclobenzaprine 10 mg tablet 10 mg PO TID Qty: 14 0RF ibuprofen 800 mg tablet 800 mg PO Q8H PRN (Reason: pain) Qty: 20 0RF Medrol (Timo) 4 mg tablets,dose pack See Rx Instructions .ROUTE .COMPLEX Qty: 21 0RF Rx Instructions: orally per package directions Prevacid 30 mg capsule,delayed release(DR/EC) 30 mg PO DAILY Qty: 30 0RF Zofran 4 mg tablet 4 mg PO Q6H PRN (Reason: nausea and vomiting) Qty: 10 0RF Discharge Orders: Discharge ED (Routine); Ordered 09/28/22 Ordered By: Lorena Holder Referrals: Josr Garcia [Primary Care Provider] - Discharge Diet: Usual diet Discharge Activity: Limit activity as instructed Patient Instructions: Muscle Spasm (ED), Thoracic Back Strain (ED) Activity Restrictions/Additional Instructions: We will continue treatment with medication for the next several days. Be sure and take it easy through the weekend and take your medications as prescribed. While you are on naproxen, do not take any Advil, Aleve, or ibuprofen as these are similar medications and can cause issues with your stomach. You can still take Tylenol. You can still use heating pads or warm soaks to help with pain as well. 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
== END 2022-09-28 00:28 | disposition home or self-care (01) ==
PROVIDERS: Emergency Provider Physician Assistant; PCP Family Medicine
DX: M62.830 Muscle spasm of back (principal); F17.210 Nicotine dependence, cigarettes, uncomplicated
CPT/HCPCS: 99283

== ENCOUNTER 2024-01-09 06:52 | Emergency (ER) | payer BC, MEDICAID, SELFPAY ==
[2024-01-09] VITALS (8 sets, daily range): BP systolic 105–153; BP diastolic 54–81; PULSE 61–85; RESP 16; TEMP 36.7; O2SAT 94–99; BMI 29.4
[2024-01-09 07:49] LABS: Basophils % 0.3 %; Eosinophils % 0.1 %; Hematocrit 40.3 % (36-47); Lymphocytes % 8.1 %; Mean Corpuscular HGB Conc 33.5 g/dL (30-55); Mean Corpuscular Hemoglobin 32.4 pg (27-33); Mean Corpuscular Volume 96.6 fl (85-98); Mean Platelet Volume 10.3 fL (7.4-10.4); Monocytes # 0.1 10^3/uL (0.2-0.9); Monocytes % 0.7 %; Neutrophils # 10.72 10^3/uL (1.8-7.7); Neutrophils % 90.3 %; Nucleated Red Blood Cells % 0 %; Platelet Count 255 10^3/cmm (157-399); Red Blood Count 4.17 10^6/uL (3.85-5.65); Red Cell Distribution Width 12.8 % (12.1-15.1); White Blood Count 11.86 10^3/uL (3.29-11.43)
[2024-01-09 07:59] LABS: Alanine Aminotransferase 11 U/L (0-33); Albumin Level 4.2 g/dL (3.5-5.2); Alkaline Phosphatase 82 U/L (35-105); Anion Gap 17.6 (5-19); Aspartate Amino Transferase 12 U/L (0-32); Blood Urea Nitrogen 13 mg/dL (6-20); Calcium 9.2 mg/dL (8.5-10.5); Carbon Dioxide 24 mmol/L (22-29); Chloride 104 mmol/L (98-107); Creatinine Clr Calc Pharmacy 85.2468; Globulin 3.1 g/dL (1.3-4.6); Glomerular Filtration Rate 68.7 mL/min (90-130); Glucose 162 mg/dL (65-115); Lipase 21 U/L (13-60); Osmolality Calculated 296 mOsm/kg (285-295); Potassium 4.6 mmol/L (3.5-5.1); Sodium 141 mmol/L (136-145); Total Bilirubin 0.2 mg/dL (0.15-1.2); Total Protein 7.3 g/dL (6.6-8.7)
--- NOTE | 2024-01-09 08:45 | ED_ITS ---
HPI - Abdominal Pain 2 General: Chief Complaint: Abdominal Pain Stated Complaint: abdominal pain and bloating Time Seen by Provider: 01/09/24 06:57 History of Present Illness: 44-year-old female presents emergency ro om with 4 weeks of abdominal pain Associated Symptoms: Reports bloating, GI cramping and nausea; Denies chills, dysuria and fever(s) Related Data Date of Last Menstrual Period: 01/06/24 Home Medications Medication Instructions Recorded Confirmed hydrocodone 5 mg-acetaminophen 325 1 tab PO Q6H PRN 05/24/21 05/24/21 mg tablet Previous Rx's Medication Instructions Recorded lansoprazole 30 mg capsule,delayed 30 mg PO DAILY #30 caps 11/27/20 release (Prevacid) ondansetron HCl 4 mg tablet 4 mg PO Q6H PRN nausea and 11/27/20 (Zofran) vomiting #10 tabs cyclobenzaprine 10 mg tablet 10 mg PO TID #14 tabs 05/18/21 ibuprofen 800 mg tablet 800 mg PO Q8H PRN pain #20 tabs 05/18/21 methylprednisolone 4 mg tablets in See Rx Instructions PO .COMPLEX 05/18/21 a dose pack (Medrol (Timo)) #21 ea methylprednisolone 4 mg tablets in See Rx Instructions PO .COMPLEX 09/28/22 a dose pack #21 ea naproxen 500 mg tablet 500 mg PO BID PRN pain #20 tabs 09/28/22 tizanidine 4 mg capsule 4 mg PO Q8H PRN muscle spasticity 09/28/22 #20 caps Allergies Allergy/AdvReac Type Severity Reaction Status Date / Time propoxyphene Allergy ADR/ALGY-Pa Verified 01/09/24 07:31 [From Didi] lpitations Review of Systems 2 Const: Denies: fever(s) or chills Card: Denies: chest pain Resp: Denies: dyspnea GI: Reports: abdominal pain, nausea, bloating and GI cramping : Denies: dysuria, urinary frequency or urinary urgency Musc: Denies: neck pain or back pain Skin/Breast: Denies: rash PFSH ED 2 PFSH: Social History Smoking and tobacco/nicotine status: current every day tobacco/nicotine user Female Reproductive History: Date of last menstrual period: 01/06/24 Physical Exam 2 Const: GENERAL APPEARANCE: cooperative ORIENTATION/CONSCIOUSNESS: Yes awake, Yes oriented to person, Yes oriented to place and Yes oriented to time HENMT: COMMON NORMALS: normocephalic, atraumatic and hearing grossly normal bilaterally HEAD & SCALP: normocephalic and atraumatic Resp: COMMON NORMALS: normal respiratory effort, No retractions, No use of accessory muscles and clear to auscultation bilaterally AUSCULTATION: clear to auscultation bilaterally Cardio: COMMON NORMALS: regular rate, regular rhythm and No murmurs present (Cardio) RATE: regular rate RHYTHM: regular rhythm GI: COMMON NORMALS: Soft to palpation and No hepatosplenomegaly present A USCULTATION: Yes normoactive bowel sounds PALPATION: Yes Soft to palpation, No Tenderness to palpation present (GI), No Guarding due to palpation present (GI) and Yes No hepatosplenomegaly present Extremity: COMMON NORMALS: normal to inspection, capillary refill normal, no clubbing, cyanosis or edema, no calf tenderness and no pedal edema Neuro: SENSORIUM/ORIENTATION: Yes oriented to person, Yes oriented to place and Yes oriented to time Skin: COMMON NORMALS: no rashes or lesions noted GENERAL SKIN EXAM: no rashes or lesions noted Course 2 Vital Signs: Vital signs: Vital Signs Temperature 98.0 F 01/09/24 07:26 Pulse Rate 69 01/09/24 07:26 Respiratory Rate 16 01/09/24 07:26 Blood Pressure 153/81 01/09/24 07:26 Pulse Oximetry 99 01/09/24 07:26 Oxygen Delivery Me thod Room Air 01/09/24 07:26 MDM - Abdominal Pain Lab Data 01/09/24 07:38 01/09/24 07:38 Labs/Radiology: Laboratory Results WBC 11.86 10^3/uL (3.29-11.43) H 01/09/24 07:38 RBC 4.17 10^6/uL (3.85-5.65) 01/09/24 07:38 Hgb 13.50 g/dL (11.27-16.99) 01/09/24 07:38 Hct 40.3 % (36-47) 01/09/24 07:38 MCV 96.6 fl (85-98) 01/09/24 07:38 MCH 32.4 pg (27-33) 01/09/24 07:38 MCHC 33.5 g/dL (30-55) 01/09/24 07:38 RDW 12.8 % (12.1-15.1) 01/09/24 07:38 Plt Count 255 10^3/cmm (157-399) 01/09/24 07:38 MPV 10.3 fL (7.4-10.4) 01/09/24 07:38 Neut % (Auto) 90.3 % 01/09/24 07:38 Lymph % (Auto) 8.1 % 01/09/24 07:38 Lamar % (Auto) 0.7 % 01/09/24 07:38 Eos % (Auto) 0.1 % 01/09/24 07:38 Baso % (Auto) 0.3 % 01/09/24 07:38 Neut # (Auto) 10.72 10^3/uL (1.8-7.7) H 01/09/24 07:38 Lymph # (Auto) 1.0 10^3/uL (0.8-4.8) 01/09/24 07:38 Lamar # (Auto) 0.1 10^3/uL (0.2-0.9) L 01/09/24 07:38 Eos # (Auto) 0.0 10^3/uL (0.0-0.8) 01/09/24 07:38 Baso # (Auto) 0.0 10^3/uL (0.0-0.1) 01/09/24 07:38 Nucleated RBC % (auto) 0 % 01/09/24 07:38 Nucleated RBCs # 0.0 /100WBC 01/09/24 07:38 Sodium 141 mmol/L (136-145) 01/09/24 07:38 Potassium 4.6 mmol/L (3.5-5.1) 01/09/24 07:38 Chloride 104 mmol/L (98-107) 01/09/24 07:38 Carbon Dioxide 24 mmol/L (22-29) 01/09/24 07:38 Anion Gap 17.6 (5-19) 01/09/24 07:38 BUN 13 mg/dL (6-20) 01/09/24 07:38 Creatinine 0.9 mg/dL (0.5-0.9) 01/09/24 07:38 GFR Calculation 68.7 mL/min (90-130) L 01/09/24 07:38 Glucose 162 mg/dL (65-115) H 01/09/24 07:38 Calculated Osmolality 296 mOsm/kg (285-295) H 01/09/24 07:38 Calcium 9.2 mg/dL (8.5-10.5) 01/09/24 07:38 Total Bilirubin 0.2 mg/dL (0.15-1.2) 01/09/24 07:38 AST 12 U/L (0-32) 01/09/24 07:38 ALT 11 U/L (0-33) 01/09/24 07:38 Alkaline Phosphatase 82 U/L (35-105) 01/09/24 07:38 Total Protein 7.3 g/dL (6.6-8.7) 01/09/24 07:38 Albumin 4.2 g/dL (3.5-5.2) 01/09/24 07:38 Globulin 3.1 g/dL (1.3-4.6) 01/09/24 07:38 Lipase 21 U/L (13-60) 01/09/24 07:38 Discharge Plan Discharge Condition: Stable Prescriptions: No Action hydrocodone-acetaminophen 5-325 mg tablet 1 tab PO Q6H PRN cyclobenzaprine 10 mg tablet 10 mg PO TID Qty: 14 0RF ibuprofen 800 mg tablet 800 mg PO Q8H PRN (Reason: pain) Qty: 20 0RF Medrol (Timo) 4 mg tablets,dose pack See Rx Instructions .ROUTE .COMPLEX Qty: 21 0RF Rx Instructions: orally per package directions Prevacid 30 mg capsule,delayed release(DR/EC) 30 mg PO DAILY Qty: 30 0RF Zofran 4 mg tablet 4 mg PO Q6H PRN (Reason: nausea and vomiting) Qty: 10 0RF tizanidine 4 mg capsule 4 mg PO Q8H PRN (Reason: muscle spasticity) Qty: 20 0RF methylprednisolone 4 mg tablets,dose pack See Rx Instructions PO .COMPLEX Qty: 21 0RF Rx Instructions: orally per package directions naproxen 500 mg tablet 500 mg PO BID PRN (Reason: pain) Qty: 20 0RF Referrals: Josr Garcia [Primary Care Provider] - Coding Level of Care Code ED Lump Maker for Royer Bowman
--- NOTE | 2024-01-09 09:07 | CT_ITS ---
WS: [id number] CT ABDOMEN PELVIS TECHNIQUE: Contrast-enhanced CT of the abdomen and pelvis with coronal and sagittal reformatted image s. CLINICAL INFORMATION: abdominal pain, bloating/swelling, weight gain COMPARISON: None. DLP: 803.[address] scans at [facility] use at least one of these dose optimization techniques: automated e xposure control; mA and/or kV adjustment per patient size (includes targeted exams where dose is matc hed to clinical indication); or iterative reconstruction. FINDINGS: Normal liver. Normal portal vein and splenic vein. Normal spleen. Normal GE junction. Air-fluid level of the stomach. Adrenal glands are normal. Normal pancreas. No hydronephrosis in either kidney. Norm al pancreatic parenchymal enhancement. Celiac and SMA are patent. Lung bases are well aerated. Normal sigmoid colon. No evidence of small or large bowel obstruction. CT/CT abdomen pelvis w con* [id number] IMPRESSION: 1. No acute findings in the abdomen or pelvis. 2. No free fluid or ascites. 3. No hydronephrosis in either kidney. 4. Small amount of fluid in the stomach and proximal duodenum. No evidence of small or large bowel obstruction.
--- NOTE | 2024-01-09 09:07 | ED_ITS ---
HPI - Abdominal Pain 2 General: Chief Complaint: Abdominal Pain Stated Complaint: abdominal pain and bloating Time Seen by Provider: 01/09/24 06:57 Source: patient Mode of arrival: ambulatory Limitations: no limitations History of Present Illness: Patient is a 43-year-old female presents to ED today with a complaint of abdominal pain, bloating, weight gain. Patient states symptoms started approximately 2 to 3 weeks ago. She states she has gained 27 pounds in 3 weeks. She was seen at [facility] a few days ago and reportedly had normal blood work. She said her BNP was elevated at almost 300. She was having some shortness of breath but her chest x-ray was clear . She was given steroids as she had some complaints of shortness of breath and these have helped with that and she is not complaining of shortness of breath today. No known cardiac or liver problems. She states she had a normal echocardiogram approximately a year ago. She is having some swelling to her legs but states this is somewhat chronic. She has not noticed any darkening of her urine or light-colored stool. Denies drug or alcohol use. MD elicited complaint: abdominal pain Pertinent past history: none Onset (ago): week(s) Location: Diffuse Severity: moderate Quality: other (bloating) Radiation: none Migration to: no migration Exacerbating factors: nothing Relieving factors: nothing Associated Symptoms: Reports bloating and nausea; Denies change in bowel habits, change in stool character, chills, diarrhea, dysuria, fever(s), hematochezia, melena and vomiting Related Data Date of Last Menstrual Period: 01/06/24 Home Medications Medication Instructions Recorded Confirmed hydrocodone 5 mg-acetaminophen 325 1 tab PO Q6H PRN 05/24/21 05/24/21 mg tablet Previous Rx's Medication Instructions Recorded lansoprazole 30 mg capsule,delayed 30 mg PO DAILY #30 caps 11/27/20 release (Prevacid) ondansetron HCl 4 mg tablet 4 mg PO Q6H PRN nausea and 11/27/20 (Zofran) vomiting #10 tabs cyclobenzaprine 10 mg tablet 10 mg PO TID #14 tabs 05/18/21 ibuprofen 800 mg tablet 800 mg PO Q8H PRN pain #20 tabs 05/18/21 methylprednisolone 4 mg tablets in See Rx Instructions PO .COMPLEX 01/21/22 a dose pack (Medrol (Timo)) #21 ea methylprednisolone 4 mg tablets in See Rx Instructions PO .COMPLEX 09/28/22 a dose pack #21 ea naproxen 500 mg tablet 500 mg PO BID PRN pain #20 tabs 09/28/22 tizanidine 4 mg capsule 4 mg PO Q8H PRN muscle spasticity 09/28/22 #20 caps Allergies Allergy/AdvReac Type Severity Reaction Status Date / Time propoxyphene Allergy ADR/MINGOY-Pa Verified 01/09/24 07:31 [From Darvocet-N] lpitations Review of Systems 2 Const: Reports: change in weight (weight gain); Denies: fever(s), chills, body aches, fatigue or malaise Card: Denies: chest pain Resp: Reports: dyspnea (earlier this week but resolved); Denies: productive cough, non-productive cough, hemoptysis or chest congestion GI: Reports: abdominal pain, nausea and bloating; Denies: vomiting, diarrhea, change in bowel habits, change in stool character, hematochezia, melena or white/light colored stool : Denies: flank pain, difficulty voiding, dysuria, urinary frequency, urinary urgency or urinary hesitancy Musc: Reports: extremity swelling; Denies: neck pain, back pain, extremity pain, joint pain or joint swelling Skin/Breast: Denies: rash Neuro: Denies: headache(s), numbness in extremities, weakness in extremities or sensory changes PFSH ED 2 PFSH: Social History Smoking and tobacco/nicotine status: current every day tobacco/nicotine user Female Reproductive History: Date of last menstrual period: 01/06/24 Physical Exam 2 Const: COMMON NORMALS: no acute distress, patient oriented x3, no limitations, healthy appearing, alert and well nourished GENERAL APPEARANCE: cooperative ORIENTATION/CONSCIOUSNESS: Yes awake, Yes oriented to person, Yes oriented to place and Yes oriented to time HENMT: COMMON NORMALS: normocephalic and atraumatic HEAD & SCALP: normal to inspection, normocephalic and atraumatic Eye: COMMON NORMALS: no scleral icterus Chest: COMMONS NORMALS: normal inspection of the chest and normal palpation of entire chest wall Resp: COMMON NORMALS: normal respiratory effort and clear to auscultation bilaterally AUSCULTATION: clear to auscultation bilaterally Cardio: COMMON NORMALS: regular rate and regular rhythm RATE: regular rate RHYTHM: regular rhythm GI: COMMON NORMALS: Normal to inspection, nondistended, normoactive bowel sounds present, Soft to palpation, No hepatosplenomegaly present and no masses INSPECTION: Yes normal to inspection, No Anasarca, No caput medusae present and No Fluid wave present AUSCULTATION: Yes normoactive bowel sounds P ALPATION: Yes Soft to palpation, Yes Tenderness to palpation present (GI) (mild diffusely), No Guarding due to palpation present (GI), No Rigid due to palpation and Yes No hepatosplenomegaly present PERCUSSION: no fluid wave : COMMON NORMALS: Yes no CVA tenderness BLADDER/KIDNEY EXAM: Yes no CVA tenderness Back/Pelvis: COMMON NORMALS: no CVA tenderness Extremity: COMMON NORMALS: capillary refill normal, no clubbing, cyanosis or edema, no calf tenderness and no pedal edema GENERAL: Yes normal exam except as noted Neuro: JOSELITO COMA SCALE: document GCS findings Joselito coma scale eye opening: Spontaneous Joselito coma scale verbal response: Orientated Jay coma scale motor response: Obey commands Jay coma scale total score: 15 COMMON NORMALS: patient oriented x3, moves all extremities, no focal motor deficits, no sensory deficits noted and gait normal SENSORIUM/ORIENTATION: Yes alert, Yes oriented to person, Yes oriented to place and Yes oriented to time Skin: COMMON NORMALS: no rashes or lesions noted GENERAL SKIN EXAM: no rashes or lesions noted Course 2 Vital Signs: Vital signs: Vital Signs Temperature 98.0 F 01/09/24 07:26 Pulse Rate 85 01/09/24 12:10 Respiratory Rate 16 01/09/24 12:10 Blood Pressure 109/73 01/09/24 12:10 Pulse Oximetry 94 01/09/24 12:10 Oxygen Delivery Me thod Room Air 01/09/24 12:10 MDM - Abdominal Pain Medical Decision Making Patient is a 43-year-old female here for abdominal pain, bloating, weight gain. She was recently seen at [facility]. Labs from this visit were obtained and reviewed. She arrives here in no acute distress. Vital signs are stable. Her blood work here is unremarkable. BNP today is normal. CXR unremarkable. is negative. UA with 3+ blood but she is on her menstrual cycle. CT of her abdomen showing no acute findings. No free fluid or ascites. Patient will be encouraged to follow-up with her primary care provider. Medical Records I reviewed the patient's medical records. Lab Data I reviewed the patient's lab results. 01/09/24 07:38 01/09/24 07:38 Labs/Radiology: Radiology Impressions Abdomen/Pelvis CT 01/09/24 09:07 IMPRESSION: 1. No acute findings in the abdomen or pelvis. 2. No free fluid or ascites. 3. No hydronephrosis in either kidney. 4. Small amount of fluid in the stomach and proximal duodenum. No evidence of small or large bowel obstruction. Chest X-Ray 01/09/24 09:07 IMPRESSION: No acute chest abnormality. Laboratory Results WBC 11.86 10^3/uL (3.29-11.43) H 01/09/24 07:38 RBC 4.17 10^6/uL (3.85-5.65) 01/09/24 07:38 Hgb 13.50 g/dL (11.27-16.99) 01/09/24 07:38 Hct 40.3 % (36-47) 01/09/24 07:38 MCV 96.6 fl (85-98) 01/09/24 07:38 MCH 32.4 pg (27-33) 01/09/24 07:38 MCHC 33.5 g/dL (30-55) 01/09/24 07:38 RDW 12.8 % (12.1-15.1) 01/09/24 07:38 Plt Count 255 10^3/cmm (157-399) 01/09/24 07:38 MPV 10.3 fL (7.4-10.4) 01/09/24 07:38 Neut % (Auto) 90.3 % 01/09/24 07:38 Lymph % (Auto) 8.1 % 01/09/24 07:38 Tyrrell % (Auto) 0.7 % 01/09/24 07:38 Eos % (Auto) 0.1 % 01/09/24 07:38 Baso % (Auto) 0.3 % 01/09/24 07:38 Neut # (Auto) 10.72 10^3/uL (1.8-7.7) H 01/09/24 07:38 Lymph # (Auto) 1.0 10^3/uL (0.8-4.8) 01/09/24 07:38 Tyrrell # (Auto) 0.1 10^3/uL (0.2-0.9) L 01/09/24 07:38 Eos # (Auto) 0.0 10^3/uL (0.0-0.8) 01/09/24 07:38 Baso # (Auto) 0.0 10^3/uL (0.0-0.1) 01/09/24 07:38 Nucleated RBC % (auto) 0 % 01/09/24 07:38 Nucleated RBCs # 0.0 /100WBC 01/09/24 07:38 Sodium 141 mmol/L (136-145) 01/09/24 07:38 Potassium 4.6 mmol/L (3.5-5.1) 01/09/24 07:38 Chloride 104 mmol/L (98-107) 01/09/24 07:38 Carbon Dioxide 24 mmol/L (22-29) 01/09/24 07:38 Anion Gap 17.6 (5-19) 01/09/24 07:38 BUN 13 mg/dL (6-20) 01/09/24 07:38 Creatinine 0.9 mg/dL (0.5-0.9) 01/09/24 07:38 GFR Calculation 68.7 mL/min (90-130) L 01/09/24 07:38 Glucose 162 mg/dL (65-115) H 01/09/24 07:38 Calculated Osmolality 296 mOsm/kg (285-295) H 01/09/24 07:38 Calcium 9.2 mg/dL (8.5-10.5) 01/09/24 07:38 Total Bilirubin 0.2 mg/dL (0.15-1.2) 01/09/24 07:38 AST 12 U/L (0-32) 01/09/24 07:38 ALT 11 U/L (0-33) 01/09/24 07:38 Alkaline Phosphatase 82 U/L (35-105) 01/09/24 07:38 NT-Pro-B Natriuret Pep 78 pg/mL (0-125) 01/09/24 07:38 Total Protein 7.3 g/dL (6.6-8.7) 01/09/24 07:38 Albumin 4.2 g/dL (3.5-5.2) 01/09/24 07:38 Globulin 3.1 g/dL (1.3-4.6) 01/09/24 07:38 Lipase 21 U/L (13-60) 01/09/24 07:38 HCG, Qual Negative (Negative) 01/09/24 07:38 Urine Color Yellow (Yellow) 01/09/24 08:54 Urine Appearance Cloudy (CLEAR) A 01/09/24 08:54 Urine pH 5 (5-7) 01/09/24 08:54 Ur Specific [place] 1.030 (1.005-1.030) 01/09/24 08:54 Urine Protein Neg (Negative) 01/09/24 08:54 Urine Glucose (UA) Norm (Normal) 01/09/24 08:54 Urine Ketones Negative (Negative) 01/09/24 08:54 Urine Blood 3+ (Negative) H 01/09/24 08:54 Urine Nitrate Negative (Negative) 01/09/24 08:54 Urine Bilirubin Neg (Negative) 01/09/24 08:54 Urine Urobilinogen 1 mg/dL (Negative) H 01/09/24 08:54 Ur Leukocyte Esterase Negative (Negative) 01/09/24 08:54 Urine RBC 5-10 /hpf (0-2) H 01/09/24 08:54 Urine WBC 0-4 /hpf (0-5) H 01/09/24 08:54 Ur Squamous Epith Cells 5-10 /hpf (0-5) H 01/09/24 08:54 Calcium Oxalate Crystal 0-4 /hpf H 01/09/24 08:54 Amorphous Sediment Not Reportable 01/09/24 08:54 Urine Bacteria Trace /hpf (NONE) 01/09/24 08:54 Urine Mucus 1+ /hpf 01/09/24 08:54 All radiology interpretation(s) finalized by discharge Discharge Plan Discharge Patient Disposition: Home Clinical Impression: Abdominal bloating, Weight gain Condition: Stable Prescriptions: No Action hydrocodone-acetaminophen 5-325 mg tablet 1 tab PO Q6H PRN cyclobenzaprine 10 mg tablet 10 mg PO TID Qty: 14 0RF ibuprofen 800 mg tablet 800 mg PO Q8H PRN (Reason: pain) Qty: 20 0RF Medrol (Timo) 4 mg tablets,dose pack See Rx Instructions .ROUTE .COMPLEX Qty: 21 0RF Rx Instructions: orally per package directions Prevacid 30 mg capsule,delayed release(DR/EC) 30 mg PO DAILY Qty: 30 0RF Zofran 4 mg tablet 4 mg PO Q6H PRN (Reason: nausea and vomiting) Qty: 10 0RF tizanidine 4 mg capsule 4 mg PO Q8H PRN (Reason: muscle spasticity) Qty: 20 0RF methylprednisolone 4 mg tablets,dose pack See Rx Instructions PO .COMPLEX Qty: 21 0RF Rx Instructions: orally per package directions naproxen 500 mg tablet 500 mg PO BID PRN (Reason: pain) Qty: 20 0RF Discharge Orders: Discharge ED (Routine); Ordered 01/09/24 Ordered By: Triny Barton Referrals: Josr Garcia [Primary Care Provider] - Activity Restrictions/Additional Instructions: we discussed, I would like you to follow up with your primary care procider next week for further evaluation. Coding Level of Care Code ED Steam Table Attendant for Royer Bowman
--- NOTE | 2024-01-09 09:07 | XR_ITS ---
WS: [id number] XR chest 1V portable [id number] REASON FOR EXAM: weight gain/swelling FINDINGS: Mild tortuosity of the thoracic aorta. Normal heart size. Calcified granulomas disease in both hemithoraces. No acute pulmonary parenchymal or pleural abnormality is identified. No lung nodule or lung mass. XR/XR chest 1V portable [id number] IMPRESSION: No acute chest abnormality.
[2024-01-09 09:50] LABS: NT Pro B Type Natriuretic Pept 78 pg/mL (0-125)
[2024-01-09 09:58] LABS: HCG, Serum Qual Negative (Negative)
[2024-01-09] MEDS: sodium chloride 0.9% 1,000 ML 999 ML IV (10:13)
[2024-01-09] MEDS: iohexol 350 mg/mL 500 mL Btl (per mL) IV (10:33)
[2024-01-09] MEDS: ondansetron 2 mg/ML SDV 2 mL 4 MG IVP (10:47)
[2024-01-09] MEDS: morphine 4 mg/mL SDV 1 mL IVP (10:47)
[2024-01-09 12:10] LABS: Urine Color Yellow (Yellow)
[2024-01-09 12:11] LABS: Blood Urine 3+ (Negative); Glucose Urine UA Norm (Normal); Ketones Urine Negative (Negative); Protein Urine Neg (Negative); Urine Appearance Cloudy (CLEAR); pH Urine 5 (5-7)
[2024-01-09 12:12] LABS: Add Urine Microscopic? YES; Bilirubin Urine Neg (Negative); Leukocyte Esterase Urine Negative (Negative); Nitrate Urine Negative (Negative); Urobilinogen Urine 1 mg/dL (Negative)
[2024-01-09 12:16] LABS: Bacteria Urine TRACE /hpf; Calcium Oxalate Crystals Urine 0-4 /hpf; Mucus Urine 1+ /hpf; Other Sediment, Urine 4; WBC Urine 0-4 /hpf (0-5)
[2024-01-09 12:17] LABS: Add Urine Culture? No
== END 2024-01-09 12:35 | disposition home or self-care (01) ==
PROVIDERS: Family Medicine; Emergency Provider Physician Assistant; PCP Family Medicine
DX: R14.0 Abdominal distension (gaseous) (principal); R63.5 Abnormal weight gain; Z68.29 Body mass index [BMI] 29.0-29.9, adult; Z72.0 Tobacco use
CPT/HCPCS: 36415; 71045; 74177; 80053; 81001; 83690; 83880; 84703; 85025; 96374; 96375; 99285; J2270; J2405; J7030

== ENCOUNTER 2024-01-11 01:46 | Emergency (ER) | payer BC, MEDICAID, SELFPAY ==
[2024-01-11 01:53] VITALS: BP 146/95; PULSE 75; RESP 20; TEMP 36.6; O2SAT 98; BMI 29.7
[2024-01-11 02:24] VITALS: PULSE 58; RESP 16; O2SAT 95
[2024-01-11] MEDS: dexamethasone 10 mg/mL INJ IM (05:00)
--- NOTE | 2024-01-11 05:18 | W.ED.URI ---
HPI - URI/Sore Throat General: Chief Complaint: Upper Respiratory Infection Stated Complaint: Throat Closing Time Seen by Provider: 01/11/24 04:08 History of Present Illness: 43-year-old female has been seen multiple times at an outside facility for a sandpaper feeling in her throat, feeling as if her throat is closing, shortness of breath, and some cough. She does states she has seasonal allergies, but this feels somewhat different. She notes that dexamethasone seem to really help at the other facility. She was put on a Medrol Dosepak, but had tachycardia with that, so she stopped it. She has been taking Zyrtec and albuterol without much relief. Related Data Home Medications Medication Instructions Recorded Confirmed hydrocodone 5 mg-acetaminophen 325 1 tab PO Q6H PRN 05/24/21 05/24/21 mg tablet Previous Rx's Medication Instructions Recorded lansoprazole 30 mg capsule,delayed 30 mg PO DAILY #30 caps 11/27/20 release (Prevacid) ondansetron HCl 4 mg tablet 4 mg PO Q6H PRN nausea and 11/27/20 (Zofran) vomiting #10 tabs cyclobenzaprine 10 mg tablet 10 mg PO TID #14 tabs 05/18/21 ibuprofen 800 mg tablet 800 mg PO Q8H PRN pain #20 tabs 05/18/21 methylprednisolone 4 mg tablets in See Rx Instructions PO .COMPLEX 05/18/21 a dose pack (Medrol (Timo)) #21 ea methylprednisolone 4 mg tablets in See Rx Instructions PO .COMPLEX 09/28/22 a dose pack #21 ea naproxen 500 mg tablet 500 mg PO BID PRN pain #20 tabs 09/28/22 tizanidine 4 mg capsule 4 mg PO Q8H PRN muscle spasticity 09/28/22 #20 caps dexamethasone 6 mg tablet 6 mg PO Q24H #7 tabs 01/11/24 Allergies Allergy/AdvReac Type Severity Reaction Status Date / Time propoxyphene Allergy ADR/ALGY-Pa Verified 01/09/24 07:31 [From Didi] lpitations [facility] ED PFSH: Social History Smoking and tobacco/nicotine status: current every day tobacco/nicotine user Physical Exam Const: COMMON NORMALS: no acute distress GENERAL APPEARANCE: cooperative and anxious; not ill appearing and not frail appearing HENMT: COMMON NORMALS: normocephalic, atraumatic and Normal external nose present HEAD & SCALP: normocephalic and atraumatic FACE & SINUS: normal facial exam and face symmetric NOSE: Normal external nose present Eye: COMMON NORMALS: Equal, round and reactive pupils present and EOMs intact bilaterally PUPIL: Yes Equal, round and reactive pupils present Neck/C-Spine: GENERAL: Yes trachea midline Chest: CHEST: Yes Symmetrical chest wall rise Resp: COMMON NORMALS: normal respiratory effort, No retractions, No use of accessory muscles and clear to auscultation bilaterally AUSCULTATION: clear to auscultation bilaterally Cardio: COMMON NORMALS: regular rate and regular rhythm RATE: regular rate RHYTHM: regular rhythm GI: COMMON NORMALS: Normal to inspection, nondistended, normoactive bowel sounds present Extremity: COMMON NORMALS: no pedal edema Neuro: JOSELITO COMA SCALE: document GCS findings Joselito coma scale eye opening: Spontaneous Joselito coma scale verbal response: Orientated Joselito coma scale motor response: Obey commands Joselito coma scale total score: 15 SENSORY EXAM: Yes extremities (intact) Psych: COMMON NORMALS: speech normal SPEECH: Yes normal speech Skin: COMMON NORMALS: no rashes or lesions noted GENERAL SKIN EXAM: no rashes or lesions noted Course Vital Signs: Vital signs: Vital Signs Temperature 98 F 01/11/24 01:53 Pulse Rate 58 L 01/11/24 02:24 Respiratory Rate 16 01/11/24 02:24 Blood Pressure 146/95 01/11/24 01:53 Pulse Oximetry 95 01/11/24 02:24 Oxygen Delivery Me thod Room Air 01/11/24 02:24 MDM - URI/Sore Throat Medical Decision Making This patient is in no respiratory distress whatsoever. There is no stridor or wheeze. Her vitals are stable. She is nontachycardic. She is not hypoxic. Chest is clear. She asks for a dexamethasone injection, as she says this seemed to help last time. She will be given dexamethasone. She will be put on a 5-day dose of dexamethasone orally. She will continue her Zyrtec and albuterol. She was told she needs an outpatient ultrasound of her neck soft tissue because of the feeling of swelling with closing in. This is ordered as an outpatient, and can be completed later this week. She knows to return for any worsening symptoms. No radiology studies performed this visit Discharge Plan Discharge Patient Disposition: Home Clinical Impression: Laryngitis acute, spasmodic Condition: Stable Prescriptions: New dexamethasone 6 mg tablet 6 mg PO Q24H Qty: 7 0RF Rx Instructions: for up to 10 days No Action hydrocodone-acetaminophen 5-325 mg tablet 1 tab PO Q6H PRN cyclobenzaprine 10 mg tablet 10 mg PO TID Qty: 14 0RF ibuprofen 800 mg tablet 800 mg PO Q8H PRN (Reason: pain) Qty: 20 0RF Medrol (Timo) 4 mg tablets,dose pack See Rx Instructions .ROUTE .COMPLEX Qty: 21 0RF Rx Instructions: orally per package directions Prevacid 30 mg capsule,delayed release(DR/EC) 30 mg PO DAILY Qty: 30 0RF Zofran 4 mg tablet 4 mg PO Q6H PRN (Reason: nausea and vomiting) Qty: 10 0RF tizanidine 4 mg capsule 4 mg PO Q8H PRN (Reason: muscle spasticity) Qty: 20 0RF methylprednisolone 4 mg tablets,dose pack See Rx Instructions PO .COMPLEX Qty: 21 0RF Rx Instructions: orally per package directions naproxen 500 mg tablet 500 mg PO BID PRN (Reason: pain) Qty: 20 0RF Discharge Orders: Discharge ED (Routine); Ordered 01/11/24 Ordered By: Bertrand Thompson Referrals: Josr Garcia [Primary Care Provider] - 4-7 days Patient Instructions: Acute Laryngitis - Adult, Opioid Safety, Pain Management Activity Restrictions/Additional Instructions: An outpatient ultrasound of your neck has been ordered. You should hear from central scheduling at the beginning of this week. Medication as directed. Continue your Zyrtec and albuterol, as this is likely allergy mediated laryngitis. Return for any problems. See your doctor this week. Coding Level of Care Code ED Mechanical Ordnance Assembler for Royer Bowman
[2024-01-11 05:21] VITALS: BP 119/73; PULSE 61; RESP 16; O2SAT 96
== END 2024-01-11 05:22 | disposition home or self-care (01) ==
PROVIDERS: Emergency Provider Emergency Medicine; PCP Family Medicine
DX: J04.0 Acute laryngitis (principal); Z72.0 Tobacco use
CPT/HCPCS: 96372; 99284; J1100

== ENCOUNTER 2025-02-17 05:19 | Emergency (ER) | payer BC, MEDICAID, SELFPAY ==
[2025-02-17 05:22] VITALS: BP 141/95; PULSE 70; RESP 18; TEMP 36.7; O2SAT 98; BMI 25.0
--- OUTSIDE RECORDS SUMMARY | 2025-02-17 05:31 | XMS_ITS | Encounter Summary ---
Author Organization [facility] Address [address] [place] [address] Care Team Providers Care Compliance Review Specialist Name Role Phone Josr Garcia MD Primary Care Provider [phone] Reason for Visit * Reason Comments Medication Refill Encounter Details Date Type Department Care Team (Late st Contact Info) Description 02/15/2025 Refill [facility] [place] [address] [phone] ZitaConstance patel, [facility] [address] [phone] Social History Tobacco Use Types Packs/Day Years Used Date Smoking Tobacco: Former Cigarettes 0.5 13 Smokeless Tobacco: Never Alcohol Use Standard Drinks/Week Comments Not Currently 1 (1 standard drink = 0.6 oz pur e alcohol) occasional Food Insecurity Answer Date Recorded Do you find you are eating l ess than you should because you can t pay for food? No 01/26/2025 Transportation Needs Answer Date Record ed Have you gone without health care because you didn t have a way to get there? 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 No 2024 Housing Stability Answer Date Recorded Do you worry you won t have a steady place to sleep or struggle to pay rent or mortgage? No 01/26/2025 Utility Needs Answer Date Recorded Do you have difficulty payin g for utility costs (electric, water or gas bills)? No 01/26/2025 Medication Needs Answer Date Recorded Have you skipped taking medi cation due to cost or worry you can t afford new medications? No 01/26/2025 Feeling Safe Answer Date Recorded Are you in a relationship wi th someone who hurts you emotionally and/or physically? 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 Topic: Medication Request >> Feb 15, 2025 1:28 PM Ashley Duenas wrote: Caller Name: Jennifer Zuniga Callback Number: Telephone Information: Medication (Ask patient/caregiver to spell if possible): tirzepatide, weight loss, (Zepbound) 5 mg/0.5 mL Pen Injector Note: All medication prescriptions can be requested using one [facility] Preferred Pharmacy: The patient's preferred pharmacy is [facility] [address] [place] [address] - [address] [address]. Call Notes: Patient stated she is supposed to go up one step on the dosage. Did caller contact the correct clinic for prescribing provider? Yes Ask caller if the refill is for a controlled medication. Is this for a controlled Medication? No Review the patient's medications to determine if they have refills remaining. Are there refills remaining for the medication? No Is there an encounter open? No documented in this encounter Plan of Treatment Upcoming Encounters Date Type Department Care Team (Late st Contact Info) Description 04/26/2025 8:20 AM PILL MACHINE OPERATOR Office Visit [facility] [place] [address] [phone] Constance Ahumada FNP [address] [phone] documented as of this encounter Visit Diagnoses Not on filedocumented in this encounter Care Teams Compliance Review Specialist Relationship Specialty Start Date End Date Josr Garcia MD [address] [phone] PCP - General Family Practice 05/21/21 documented as of this encounter
--- OUTSIDE RECORDS SUMMARY | 2025-02-17 05:31 | XMS_ITS | Encounter Summary ---
Author Organization [facility] Address [address] [place] [address] Care Team Providers Care Truck Driver Flatbed Name Role Phone Josr Garcia MD Primary Care Provider [phone] Reason for Referral * Medication Prior Authorization - Pending Review Specialty Diagnoses / Procedures Referred By Contac t Referred To Contact Diagnoses Obesity (BMI 30.0-34.9) Constance Ahumada FNP [address] [address] Phone: tel: fax: Referral ID Status Reason Start Date Expiration Date V isits Requested Visits Authorized [id number] Pending Review 1 1 Reason for Visit * Reason Comments Med Refill Encounter Details Date Type Department Care Team (Late st Contact Info) Description 02/15/2025 Refill [facility] [place] [address] [address] Constance Ahumada FNP [address] [phone] Obesity (BMI 30.0-34.9) (Primary Dx); Gastroesophageal reflux disease without esophagitis Social History Tobacco Use Types Packs/Day Years [...] worry about transportation for future doctor visits, 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 Gender Identity Not on file Sexual Orientation Not on file documented as of this encounter Plan of Treatment Upcoming Encounters Date Type Department Care Team (Late st Contact Info) Description 04/26/2025 8:20 AM GLOBAL SALES DIRECTOR Office Visit [facility] [place] [address] [phone] Constance Ahumada FNP [address] [phone] documented as of this encounter Visit Diagnoses Diagnosis Obesity (BMI 30.0-34.9)- Primary Obesity, unspecified Gastroesophageal reflux disease without esophagitis Esophageal reflux documented in this encounter Care Teams Truck Driver Flatbed Relationship Specialty Start Date End Date Josr Garcia MD [address] [phone] PCP - General Family Practice 05/21/21 documented as of this encounter
--- OUTSIDE RECORDS SUMMARY | 2025-02-17 05:31 | XMS_ITS | Clinical Summary ---
Author Organization Radha Cahves [facility] Address [address] [place] [address] Phone Care Team Providers Care Beer Brewer Name Role Phone Josr Garcia MD Primary Care Provider [phone] Allergies Active Allergy Reactions Criticality Noted Date Comments Dog Dander Swelling Low 02/08/2024 Ketorolac Tromethamine Other (See Comments) Low causes indigestion -- other NSAIDs are okay Milk Based Formulas Cough Medium 10/19/2024 Propoxyphene N-Acetaminophen Bradycardia High 04/10/2019 Tramadol Angioedema High 01/11/2024 Medications dimenhyDRINATE (DRAMAMINE) 50 mg Tablet, Chewable Take 25 mg by mouth every 6 hours as needed for Nausea. Active diphenhydrAMIN E (BENADRYL) 25 mg tablet Take 25 mg by mouth every 6 hours as needed for Allergies. Active EPINEPHrine (EPIPEN) 0.3 mg/0.3 mL Auto-InjectorI ndications:Natasha rtness of breath,Allergi c reaction, initial encounter Inject 0.3 mL (0.3 mg) by intramuscular injection 1 time daily as needed for Anaphylaxis. 1 Each 1 024 Active pantoprazole (Protonix) 40 mg Tablet, Delayed Release (E.C.)Indicati ons:Gastroesop hageal reflux disease without esophagitis Take 1 Tablet (40 mg) by mouth daily. 30 Tablet 3 025 Active cyclobenzaprin e (FLEXERIL) 5 mg Tablet Take 1 Tablet (5 mg) by mouth 2 times daily as needed for Spasm or Pain. 60 Tablet 2 Active albuterol sulfate HFA 90 mcg/actuation aerosol inhaler Take 2 Puffs by inhalation every 6 hours as needed for Shortness of Breath. 8.5 Gram 1 Active famotidine (PEPCID) 20 mg tabletIndicati ons:Gastroesop hageal reflux disease without esophagitis Take 1 tablet by mouth twice daily for 5 days 10 Tablet 025 2024 Active tirzepatide, weight loss, (ZEPBOUND) 7.5 mg/0.5 mL Pen InjectorIndica tions:Obesity (BMI 30.0-34.9) Inject 0.5 mL (7.5 mg) by subcutaneous injection every 7 days. 2 mL 2 Active albuterol sulfate HFA 90 mcg/actuation aerosol inhaler Take 2 Puffs by inhalation every 6 hours as needed for Shortness of Breath. 8.5 Gram 1 025 2024 Discontinued(R eorder) famotidine (PEPCID) 20 mg tabletIndicati ons:Gastroesop hageal reflux disease without esophagitis Take 1 Tablet (20 mg) by mouth 2 times daily for 5 days. 10 Tablet 025 2024 Discontinued tirzepatide, weight loss, (Zepbound) 2.5 mg/0.5 mL Pen InjectorIndica tions:Obesity (BMI 30.0-34.9) Inject 0.5 mL (2.5 mg) by subcutaneous injection every 7 days. 2 mL 025 2024 Discontinued tirzepatide, weight loss, (Zepbound) 5 mg/0.5 mL Pen InjectorIndica tions:Obesity (BMI 30.0-34.9) Inject 0.5 mL (5 mg) by subcutaneous injection every 7 days. 2 mL 6 025 2024 Discontinued(D ose/form adjustment) Active Problems Problem Noted Date Diagnosed Date Multiple environmental allergies 01/18/2025 Multiple food allergies 01/18/2025 Rash 01/17/2025 Aortic atherosclerosis 12/23/2024 Heart palpitations 06/05/2021 Bulging lumbar disc 06/05/2021 Resolved Problems Problem Noted Date Diagnosed Date Resolved Date Tobacco dependence 06/05/2021 Encounters Date Type Department Care Team Description 02/15/[address] [phone] Zita, Crystal Axia, FLASH DRIER OPERATOR Obesity (BMI 30.0-34.9) (Primary Dx); Gastroesophageal reflux disease without esophagitis 02/15/[address] [phone] Zita, Crystal Aixa, FLASH DRIER OPERATOR 02/01/2025 External Device Data ST[facility] ABSTRACTION Provider, Abstract 02/01/2025 External Device Data [facility] ABSTRACTION Provider, Abstract 01/26/2025 9:26 PM CDT - 01/26/2025 10:22 PM CDT Emergency [facility] Emergency Medicine [address] [phone] Juan Erickson MD Gastroesophageal reflux disease, unspecified whether esophagitis present (Primary Dx) Discharge Disposition: Home or Self Care 01/26/2025 Travel 01/20/2025 8:20 AM CDT Office Visit [address] [phone] Zita, Crystal Aixa, FLASH DRIER OPERATOR Obesity (BMI 30.0-34.9) (Primary Dx); Sensitivity to sunlight; Tobacco abuse; Positive MITZY (antinuclear antibody) 01/18/2025 4:00 PM CDT Office Visit [address] [phone] Josr Garcia MD Multiple environmental allergies (Primary Dx); Multiple food allergies; Urticaria; Myalgia 01/18/2025 External Device Data STL ABSTRACTION Provider, Abstract 01/18/2025 External Device Data [facility] ABSTRACTION Provider, Abstract 01/17/2025 9:20 AM CDT Office Visit [address] [phone] Triny Cantrell FNP Rash (Primary Dx) 01/14/2025 10:40 AM CDT Office Visit [address] [phone] Triny Cantrell FNP Drug interaction (Primary Dx) 01/14/2025 Nurse Triage [address] [phone] Josr Garcia MD 01/13/2025 4:20 PM CDT Office Visit [address] [phone] Batsheva Strickland NP Acute nonintractable headache, unspecified headache type (Primary Dx); Gastroesophageal reflux disease without esophagitis 01/10/[address] [phone] Constance Ahumada FNP Referral; Patient Communication 12/31/2024 Orders Only [address] [phone] Constance Ahumada FNP Positive MITZY (antinuclear antibody) (Primary Dx); Easy bruising; Other fatigue 12/28/2024 External Device Data STL ABSTRACTION Provider, Abstract 12/28/2024 External Device Data [facility] ABSTRACTION Provider, Abstract 12/28/2024 External Device Data ST[facility] ABSTRACTION Provider, Abstract 12/28/[address] [phone] Josr Garcia MD Medication Authorization 12/24/2024 Results Follow-Up [address] [phone] Constance Ahumada FNP POC URINALYSIS DIPSTICK AUTOMATED, COMPREHENSIVE METABOLIC PANEL, CBC WITH DIFFERENTIAL, SYSTEMIC AUTOIMMUNE PANEL 12/23/2024 9:20 AM CDT Office Visit [address] [phone] Zita, Crystal Aixa, FLASH DRIER OPERATOR Urinary tract infection with hematuria, site unspecified (Primary Dx); Hypokalemia; Positive MITZY (antinuclear antibody); Tobacco abuse; Encounter for smoking cessation counseling; Obesity (BMI 30.0-34.9); Aortic atherosclerosis 12/22/2024 External Device Data STL ABSTRACTION Provider, Abstract 12/21/2024 External Device Data ST[place] ABSTRACTION Provider, Abstract 12/21/2024 External Device Data ST[facility] ABSTRACTION Provider, Abstract 12/20/2024 Results Follow-Up [address] [phone] Zita, Crystal Aixa, FLASH DRIER OPERATOR POC URINALYSIS DIPSTICK AUTOMATED, URINE CULTURE 12/18/2024 4:38 AM CDT - 12/18/2024 6:48 AM CDT Emergency [facility] Emergency Medicine [address] [place] [phone] Ellis Odom DO Urinary tract infection with hematuria, site unspecified (Primary Dx); Fever, unspecified fever cause; Chills; Hypokalemia Discharge Disposition: Home or Self Care 12/15/2024 11:30 AM CDT - 12/15/2024 11:59 PM CDT Hospital Encounter [facility] [address] [phone] Josr Garcia MD Discharge Disposition: Home or Self Care 12/15/2024 11:00 AM CDT Office Visit [address] [phone] Zita, Crystal Aixa, FLASH DRIER OPERATOR Flank pain (Primary Dx); Urinary tract infection with hematuria, site unspecified; Gastroesophageal reflux disease without esophagitis 12/15/2024 1:24 AM CDT - 12/15/2024 2:59 AM CDT Emergency [address] [phone] Juan Erickson MD Urinary tract infection with hematuria, site unspecified (Primary Dx) Discharge Disposition: Home or Self Care 12/15/2024 External Device Data STL ABSTRACTION Provider, Abstract 12/15/2024 Travel 12/14/2024 External Device Data ST[facility] ABSTRACTION Provider, Abstract 12/14/2024 External Device Data [facility] ABSTRACTION Provider, Abstract 11/29/2024 Results Follow-Up [address] [phone] Constance Ahumada, FLASH DRIER OPERATOR C-REACTIVE PROTEIN, CBC WITH DIFFERENTIAL, COMPREHENSIVE METABOLIC PANEL, Additional followed-up results: 3 11/26/2024 12:20 PM CDT Office Visit [address] [phone] Triny Cantrell, LASHA Allergic reaction, initial encounter (Primary Dx) from Last 3 Months Family History Medical History Relation Name Comments Diabetes Father Heart Disease Mother Relation Name Status Comments Father Mother Social History Tobacco Use Types Packs/Day Years Used Date Smoking Tobacco: Former Cigarettes 0.5 13 Smokeless Tobacco: Never Tobacco Cessation:Counseling Given: No Alcohol Use Standard Drinks/Week Comments Not Currently [...] worry about transportation for future doctor visits, seed cone picker medication, etc.? 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 Gender Identity Not on file Sexual Orientation Not on file Last Filed Vital Signs Vital Sign Reading Time Taken Comments Blood Pressure 115/75 01/26/2025 10:15 PM CDT Pulse 61 01/26/2025 10:15 PM CDT Temperature 36.7 C (98.1 F) 01/26/2025 9:31 PM CDT Respiratory Rate 14 01/26/2025 10:15 PM CDT Oxygen Saturation 97% 01/26/2025 10:15 PM CDT Inhaled Oxygen Concentration - - Weight 75.1 kg (165 lb 9.6 oz) 01/26/2025 9:31 P M CDT Height 160 cm (5' 3 ) 01/26/2025 9:31 PM CDT Body Mass Index 29.33 01/26/2025 9:31 PM CDT Plan of Treatment Upcoming Encounters Date Type Department Care Team (Late st Contact Info) Description 04/26/2025 8:20 AM ELECTRICAL INTEGRATOR Office Visit [address] [phone] ZtiaConstance patel, [facility] [address] [phone] Health Maintenance Due Date Last Done Comments Pre-Diabetes and Diabetes Screening 1981 DTAP/TDAP/TD VACCINES (1 - Tdap) 2000 HEPATITIS B VACCINES (1 of 3 - 19+ 3-dose series) 2000 HPV/Cotest (21-29) 2002 HPV VACCINES (1 - 3-dose SCD M series) 2008 CERVICAL CANCER SCREENING 07/23/2011 HPV/Cotest (30-65) 07/23/2011 PAP SMEAR 07/23/2011 BREAST CANCER SCREENING 2021 INFLUENZA VACCINE (#1) 2024 4, 01/07/2022 Preventative Visit-Managed Medicaid 01/18/2026 Postponed from 07/22 (Therapeutic Plan Prohibits) Procedures Procedure Name Priority Date/Time Associated Diagnosis Comments CBC WITH DIFFERENTIAL Routine 12/23/2024 9:59 AM CDT Urinary tract infection with hematuria, site unspecified COMPREHENSIVE METABOLIC PANEL Routine 12/23/2024 9:59 AM CDT Urinary tract infection with hematuria, site unspecified SYSTEMIC AUTOIMMUNE PANEL Routine 12/23/2024 9:59 AM CDT Positive MITZY (antinuclear antibody) POC URINALYSIS DIPSTICK AUTOMATED Routine 12/23/2024 9:57 AM CDT Urinary tract infection with hematuria, site unspecified URINALYSIS MICROSCOPY ONLY Stat 12/18/2024 5:45 AM CDT HCG QUALITATIVE, URINE Stat 5:45 AM CDT URINALYSIS W/REFLEX MICROSCOPIC Stat 12/18/2024 5:45 AM CDT MAGNESIUM LEVEL Stat 12/18/2024 5:45 AM CDT LIPASE Stat 12/18/2024 5:45 AM CDT COMPREHENSIVE METABOLIC PANEL Stat 12/18/2024 5:45 AM CDT CBC WITH DIFFERENTIAL Stat 12/18/2024 5:45 AM CDT POC URINALYSIS DIPSTICK AUTOMATED Routine 12/15/2024 11:10 AM CDT Flank pain CT ABDOMEN PELVIS WO CONTRAST Stat 12/15/2024 2:13 AM CDT URINALYSIS MICROSCOPY ONLY Stat 12/15/2024 1:30 AM CDT BASIC METABOLIC PANEL Stat 12/15/2024 1:30 AM CDT CBC WITH DIFFERENTIAL Stat 12/15/2024 1:30 AM CDT HCG QUALITATIVE, URINE Stat 1:30 AM CDT URINALYSIS W/REFLEX MICROSCOPIC Stat 12/15/2024 1:30 AM CDT URINE CULTURE Routine 12/15/2024 12:00 AM CDT Urinary tract infection with hematuria, site unspecified HEPATIC FUNCTION PANEL Routine 11:50 AM CDT COMPREHENSIVE METABOLIC PANEL Routine 11/26/2024 11:50 AM CDT CBC WITH DIFFERENTIAL Routine 11/26/2024 11:50 AM CDT C-REACTIVE PROTEIN Stat 11/26/2024 11 :50 AM CDT HISTAMINE Routine 11/26/2024 11:49 AM CDT Allergic reaction, initial encounter TRYPTASE Routine 11/26/2024 11:49 AM CDT Allergic reaction, initial encounter from Last 3 Months Results * (ABNORMAL) SYSTEMIC AUTOIMMUNE PANEL (12/23/2024 9:59 AM CDT) MITZY SCREEN POSITIVE(A) NEGATIVE [facility], Comment: MITZY IFA is a first line screen for detecting the presence of up to approximately 150 autoantibodies in various autoimmune diseases. A positive MITZY IFA result is suggestive of autoimmune disease and reflexes to titer and pattern. Further laboratory testing may be considered if clinically indicated. For additional information, please refer to http://education.iMusician.ShopTap/faq/PMI124 (This link is being provided for informational/educational purposes only.) DNA AB (DS) CRITHIDIA,IFA NEGATIVE NEGATIVE [facility], CHROMATIN (NUCLEOSOMAL) ANTIBODY <1.0 NEG <1.0 NEGATIVE AI [facility], MACE IGG AB <1.0 NEG <1.0 NEGATIVE AI [facility], TETE ABS, SM/ESTHETICIAN AND MANAGER MEDICAL SPA AB <1.0 NEG <1.0 NEGATIVE AI [facility], ESTHETICIAN AND MANAGER MEDICAL SPA AB <1.0 NEG <1.0 NEGATIVE AI [facility], SJOGRENS ABS (SSA) <1.0 NEG <1.0 NEGATIVE AI [facility], SJOGRENS ABS (SSB) <1.0 NEG <1.0 NEGATIVE AI [facility], SCLERODERMA AB SCL 70 <1.0 NEG <1.0 NEGATIVE [facility], JO1 AB <1.0 NEG <1.0 NEGATIVE AI [facility], CENTROMERE AB <1.0 NEG <1.0 NEGATIVE AI [facility], COMPLEMENT C3 144 83 - 193 mg/dL [facility], COMPLEMENT C4 23 15 - 57 mg/dL [facility], CARDIOLIPIN IGA AB 16.3 APL-U/mL [facility], Comment: Value Interpretation ----- <20.0 Antibody not detected > or = 20.0 Antibody detected CARDIOLIPIN IGG AB <2.0 GPL-U/mL [facility], Comment: Value Interpretation ----- <20.0 Antibody not detected > or = 20.0 Antibody detected CARDIOLIPIN IGM AB 9.4 MPL-U/mL [facility], Comment: Value Interpretation ----- <20.0 Antibody not detected > or = 20.0 Antibody detected B2 GLYCOPROTEIN I IGA 2.6 U/mL [facility], Comment: Value Interpretation ----- <20.0 Antibody not detected > or = 20.0 Antibody detected B2 GLYCOPROTEIN I IGG 3.6 U/mL [facility], Comment: Value Interpretation ----- <20.0 Antibody not detected > or = 20.0 Antibody detected B2 GLYCOPROTEIN I IGM 92.0(H) U/mL [facility], Comment: The antiphospholipid antibody syndrome (APS) is a clinical-pathologic correlation that includes a clinical event (e.g. arterial or venous thrombosis, morbidity) and persistent positive antiphospholipid antibodies (IgM, IgG Cardiolipin or b2GPI antibodies greater than the 99th percentile; or a lupus anticoagulant). International consensus guidelines for APS suggest waiting at least 12 weeks before retesting to confirm antibody persistence. The Systemic Lupus International Collaborating Clinics immunological classification criteria for systemic lupus erythematosus (SLE) include testing for isotype IgA, which has yet to be incorporated into APS criteria. Low level antiphospholipid antibodies may sometimes be detected in the setting of infection, drug therapy or aging. For additional information, please refer to http://education.E-TEK Dynamics/faq/ORV472 (This link is being provided for informational/educational purposes only.) Value Interpretation ----- <20.0 Antibody not detected > or = 20.0 Antibody detected RHEUMATOID FACTOR (IGA) <5 U [facility], Comment: Reference Range: <=6 NEGATIVE >6 POSITIVE RHEUMATOID FACTOR IGG <5 U [facility], Comment: Reference Range: <=6 NEGATIVE >6 POSITIVE RHEUMATOID FACTOR (IGM) 6 U [facility], Comment: Reference Range: <=6 NEGATIVE >6 POSITIVE CYCLIC CITRULLINATED PEPTIDE AB IGG <16 Units [facility], Comment: Reference Range: NEGATIVE: <20 WEAK POSITIVE: 20-39 MODERATE POSITIVE: 40-59 STRONG POSITIVE >59 MUTATED CITRULLINATED VIMENTIN AB <20 <20 U/mL [facility], Comment: Anti-mutated citrullinated vimentin antibody may be used as a second-line marker of rheumatoid arthritis, in addition to rheumatoid factor and anti-cyclic citrullinated peptide (CCP). THYROID PEROXIDASE AB 5 <9 IU/mL [facility] [employer] [facility], MITZY TITER 1:40(H) titer [facility] [employer] [facility], Comment: A low level MITZY titer may be present in pre-clinical autoimmune diseases and normal individuals. Reference Ranges for Anti-Nuclear Ab Titer: <1:40 Negative 1:40-1:80 Low Antibody Level >1:80 Elevated Antibody Level MITZY PATTERN CYTOPLASMIC [facility] /[facility], Comment: The presence of cytoplasmic fluorescence was noted on the HEp-2 slide. Other reactivities (e.g., anti-mitochondrial antibodies or anti-smooth muscle antibodies) may be responsible for this fluorescence. The clinical significance of this finding is uncertain. Clinical correlation is recommended. AC-15 to AC-23: Cytoplasmic International Consensus on MITZY Patterns https://doi.org/10.1515/nzug-2820-4142 Test Performed at: [facility], [address] [place] [address] Holly Sparks MD,PhD,JALEN Blood 12/23/2024 9:59 AM CDT 12/24/2024 5:59 AM CDT Constance Ahumada FLASH DRIER OPERATOR CHEMISTRY ORDERABLES Fin al Result [facility] [phone] [facility] [employer], [address] [place] [address] * (ABNORMAL) CBC WITH DIFFERENTIAL (12/23/2024 9:59 AM CDT) Only the most recent of4 resultswithin the time period is included. WBC 7.6 3.8 - 10.8 Thousand/u L [facility] RBC 4.64 3.80 - 5.10 Million/uL [facility] HEMOGLOBIN 15.0 11.7 - 15.5 g/dL [facility] HEMATOCRIT 46.4(H) 35.0 - 45.0 % [facility] MCV 100.0 80.0 - 100.0 fL [facility] MCH 32.3 27.0 - 33.0 pg [facility] MCHC 32.3 32.0 - 36.0 g/dL [facility] Comment: For adults, a slight decrease in the calculated MCHC value (in the range of 30 to 32 g/dL) is most likely not clinically significant; however, it should be interpreted with caution in correlation with other red cell parameters and the patient's clinical condition. RDW 14.1 11.0 - 15.0 % [facility] PLATELETS 251 140 - 400 Thousand/u L [facility] MPV 11.1 7.5 - 12.5 fL [facility] NEUTROPHIL ABSOLUTE 5,183 1,500 - 7,800 cells/uL [facility] LYMPHOCYTE ABSOLUTE 1,839 850 - 3,900 cells/uL [facility] MONOCYTE ABSOLUTE 357 200 - 950 cells/uL [facility] EOSINOPHIL ABSOLUTE 167 15 - 500 cells/uL [facility] BASOPHILS ABSOLUTE 53 0 - 200 cells/uL [facility] NEUTROPHIL 68.2 % [facility] LYMPHOCYTES 24.2 % [facility] MONOCYTE 4.7 % [facility] EOSINOPHILS 2.2 % [facility] BASOPHILS 0.7 % [facility] Comment: Test Performed at: [facility] [address], [place] [address] Avery Maria MD Blood 12/23/2024 9:59 AM CDT 12/24/2024 4:21 AM CDT Constance Baptistes FLASH DRIER OPERATOR HEMATOLOGY ORDERABLES Fi nal Result [facility] [phone] [facility] [address] [facility] [place] [address] * COMPREHENSIVE METABOLIC PANEL (12/23/2024 9:59 AM CDT) Only the most recent of3 resultswithin the time period is included. GLUCOSE 99 65 - 99 mg/dL [facility] Comment: Fasting reference interval BUN 7 7 - 25 mg/dL [facility] CREATININE 0.77 0.50 - 0.99 mg/dL [facility] GFR 98 > OR = 60 mL/min/1. 73m2 [facility] BUN/CREAT RATIO SEE NOTE: 6 - 22 (calc) [facility] Comment: Not Reported: BUN and Creatinine are within reference range. SODIUM 137 135 - 146 mmol/L [facility] POTASSIUM 4.9 3.5 - 5.3 mmol/L [facility] CHLORIDE 104 98 - 110 mmol/L [facility] CO2 24 20 - 32 mmol/L [facility] CALCIUM 9.1 8.6 - 10.2 mg/dL [facility] TOTAL PROTEIN 6.7 6.1 - 8.1 g/dL [facility] ALBUMIN 4.0 3.6 - 5.1 g/dL [facility] GLOBULIN 2.7 1.9 - 3.7 g/dL (calc) [facility] ALBUMIN/GLOBULIN RATIO 1.5 1.0 - 2.5 (calc) [facility] BILIRUBIN TOTAL 0.3 0.2 - 1.2 mg/dL [facility] ALKALINE PHOSPHATASE 78 31 - 125 U/L [facility] AST 12 10 - 30 U/L [facility] ALT 9 6 - 29 U/L [facility] Comment: Test Performed at: [facility] [address] [address] Avery Maria MD Blood 12/23/2024 9:59 AM CDT 12/24/2024 4:21 AM CDT Constance Kruse Zita FLASH DRIER OPERATOR CHEMISTRY ORDERABLES Fin al Result [facility] [phone] [facility] [address] [place] [address] * (ABNORMAL) POC URINALYSIS DIPSTICK AUTOMATED (12/23/2024 9:57 AM CDT) Only the most recent of2 resultswithin the time period is included. COLOR UA POC Yellow Pale to Dark Yellow [facility] CLARITY UA POC Slightly Cloudy(A) Clear, Other [facility] GLUCOSE UA POC Negative Negative, Normal [facility] BILIRUBIN UA POC Negative Negative [facility] KETONES UA POC Negative Negative [facility] SPECIFIC GRAVITY UA POC 1.020 1.000 - 1.030 [facility] BLOOD UA POC Negative Negative [facility] PH UA POC 6.5 5.0 - 8.0 [facility] PROTEIN UA POC Negative Negative [facility] UROBILINOGEN UA POC 0.2 <2.0 mg/dL [facility] NITRITE UA POC Negative Negative [facility] LEUKOCYTE ESTERASE UA POC Negative Negative [facility] KIT [address] NUMBER POC [phone] [facility] KIT EXP DATE POC 11/25/2025 [facility] Urine 12/23/2024 9:57 AM CDT Constance Kruse Zita FLASH DRIER OPERATOR POINT OF CARE TESTING Fi nal Result [facility] CLIA# [id number] [address] [place] [address] * URINALYSIS MICROSCOPY ONLY (12/18/2024 5:45 AM CDT) Only the most recent of2 resultswithin the time period is included. WBC UA 0-2 0 - 2 /hpf 12/18/2024 5:59 AM CDT [facility] RBC UA 0-2 0 - 2 /hpf 12/18/2024 5:59 AM CDT [facility] BACTERIA UA Negative Negative /hpf 12/18/2024 5:59 AM CDT [facility] EPITHELIAL CELLS, URINE 0-5 0 - 5 /hpf 12/18/2024 5:59 AM CDT [facility] Urine URINE SPECIMEN OBTAINED BY CLEAN CATCH PROCEDURE / Unknown Collection / Unknown 12/18/2024 5:45 AM CDT 12/18/2024 5:50 AM CDT us Ellis Y Odom DO URINE ORDERABLES Final Result [facility] CLIA # [id number] [address] [place] [id number] * (ABNORMAL) URINALYSIS WITH REFLEX MICROSCOPIC (12/18/2024 5:45 AM CDT) Only the most recent of2 resultswithin the time period is included. COLOR UA Yellow Pale to Dark Yellow 12/18/2024 5:59 AM CDT [facility] CLARITY UA Clear Clear 12/18/2024 5:59 AM CDT [facility] SPECIFIC GRAVITY UA 1.015 1.003 - 1.035 12/18/2024 5:59 AM CDT [facility] PH UA 6.0 5.0 - 8.0 12/18/2024 5:59 AM CDT [facility] LEUKOCYTE ESTERASE UA Negative Negative 12/18/2024 5:59 AM CDT [facility] NITRITE UA Positive(A) Negative 12/18/2024 5:59 AM CDT [facility] PROTEIN UA Negative Negative 12/18/2024 5:59 AM CDT [facility] GLUCOSE UA Trace(A) Negative 12/18/2024 5:59 AM CDT [facility] KETONES UA Negative Negative 12/18/2024 5:59 AM CDT [facility] UROBILINOGEN UA 0.2 <2.0 mg/dL 5:59 AM CDT [facility] BILIRUBIN UA Negative Negative 12/18/2024 5:59 AM CDT [facility] BLOOD UA Negative Negative 12/18/2024 5:59 AM CDT [facility] Urine URINE SPECIMEN OBTAINED BY CLEAN CATCH PROCEDURE / Unknown Collection / Unknown 12/18/2024 5:45 AM CDT 12/18/2024 5:50 AM CDT us Ellis Y Odmo DO URINE ORDERABLES Final Result Performing Organization Address City/[facility] Co de Phone Number [facility] CLIA # [id number] [address] [place] [address] * HCG QUALITATIVE, URINE (12/18/2024 5:45 AM CDT) Only the most recent of2 resultswithin the time period is included. HCG QUAL URINE Negative Negative 12/18/2024 5:56 AM CDT [facility] COLOR UA Yellow Pale to Dark Yellow 12/18/2024 5:56 AM CDT [facility] CLARITY UA Clear Clear 12/18/2024 5:56 AM CDT [facility] Urine URINE SPECIMEN OBTAINED BY CLEAN CATCH PROCEDURE / Unknown Collection / Unknown 12/18/2024 5:45 AM CDT 12/18/2024 5:50 AM CDT us Ellis Y Odom DO URINE ORDERABLES Final Result [facility] CLIA # [id number] [address] [place] [address] * MAGNESIUM LEVEL (12/18/2024 5:45 AM CDT) MAGNESIUM 2.0 1.6 - 2.6 mg/dL 12/18/2024 6:09 AM CDT [facility] Blood BLOOD SPECIMEN / Unknown Collection / Unknown 12/18/2024 5:45 AM CDT 12/18/2024 5:50 AM CDT us Ellis Y Odom DO CHEMISTRY ORDERABLES Final Resul t Performing Organization Address [facility] Co de Phone Number [facility] CLIA # [id number] [address] [place] [address] * LIPASE (12/18/2024 5:45 AM CDT) LIPASE 20 13 - 60 U/L 12/18/2024 6:09 AM CDT [facility] Blood BLOOD SPECIMEN / Unknown Collection / Unknown 12/18/2024 5:45 AM CDT 12/18/2024 5:50 AM CDT us Ellis Y Odom DO CHEMISTRY ORDERABLES Final Resul t Performing Organization Address [facility] Co de Phone Number [facility] CLIA # [id number] [address] [place] [address] * CT ABDOMEN PELVIS WO CONTRAST (12/15/2024 2:13 AM CDT) Anatomical Region Laterality Modality Abdomen Computed Tomogra phy 12/15/2024 1:52 AM CDT Impressions 12/15/2024 2:30 AM CDT IMPRESSION: No renal calculi or hydroureteronephrosis. No acute abdominopelvic process. MACRO: None Narrative 12/15/2024 2:30 AM CDT EXAMINATION: CT ABDOMEN PELVIS WO CONTRAST CLINICAL HISTORY: ASSOCIATED DIAGNOSIS: Flank pain, stone disease suspected ORDERING PROVIDER: JUAN ERICKSON TECHNOLOGISTS NOTE: COMPARISON: December 22, 2022. TECHNIQUE: Contiguous axial images were obtained through the abdomen and pelvis from the level of the diaphragmatic domes through the pubic symphysis. MPR sagittal and coronal reconstructions were obtained from the axial data. FINDINGS: Included images of the lower thorax: No focal lung consolidation or pleural effusion. Hepatobiliary: Unremarkable liver without biliary dilation evident. Pancreas: Unremarkable Spleen: Unremarkable Adrenal Glands: Unremarkable Kidneys, ureters, and bladder: No calculi or hydroureteronephrosis. Abdominal and pelvic vasculature: Atherosclerotic wall calcifications are present without aneurysm. GI tract: No evidence of obstruction. The appendix is within normal limits. Peritoneum and retroperitoneum: No free fluid or free air. Lymph Nodes: No lymphadenopathy. Uterus and adnexa: Unremarkable. Visualized musculoskeletal structures: No acute fracture or destructive osseous lesion. Procedure Note Brady Carrion MD - 12/15/2024 EXAMINATION: CT ABDOMEN PELVIS WO CONTRAST CLINICAL HISTORY: ASSOCIATED DIAGNOSIS: Flank pain, stone disease suspected ORDERING PROVIDER: JUAN ERICKSON TECHNOLOGISTS NOTE: COMPARISON: December 22, 2022. TECHNIQUE: Contiguous axial images were obtained through the abdomen and pelvis from the level of the diaphragmatic domes through the pubic symphysis. MPR sagittal and coronal reconstructions were obtained from the axial data. FINDINGS: Included images of the lower thorax: No focal lung consolidation or pleural effusion. Hepatobiliary: Unremarkable liver without biliary dilation evident. Pancreas: Unremarkable Spleen: Unremarkable Adrenal Glands: Unremarkable Kidneys, ureters, and bladder: No calculi or hydroureteronephrosis. Abdominal and pelvic vasculature: Atherosclerotic wall calcifications are present without aneurysm. GI tract: No evidence of obstruction. The appendix is within normal limits. Peritoneum and retroperitoneum: No free fluid or free air. Lymph Nodes: No lymphadenopathy. Uterus and adnexa: Unremarkable. Visualized musculoskeletal structures: No acute fracture or destructive osseous lesion. IMPRESSION: No renal calculi or hydroureteronephrosis. No acute abdominopelvic process. MACRO: None us Juan Erickson MD CT ORDERABLES Final Re sult * BASIC METABOLIC PANEL (12/15/2024 1:30 AM CDT) SODIUM 138 136 - 145 mmol/L 12/15/2024 2:08 AM CDT [facility] POTASSIUM 3.6 3.5 - 5.1 mmol/L 12/15/2024 2:08 AM CDT [facility] CHLORIDE 101 98 - 107 mmol/L 12/15/2024 2:08 AM CDT [facility] CO2 25 22 - 29 mmol/L 12/15/2024 2:08 AM T [facility] CALCIUM 9.3 8.6 - 10.0 mg/dL 12/15/2024 2:08 AM T [facility] BUN 9 6 - 20 mg/dL 12/15/2024 2:08 AM [facility] CREATININE 0.72 0.51 - 0.95 mg/dL 12/15/2024 2:08 AM [facility] GLUCOSE 91 74 - 99 mg/dL 12/15/2024 2:08 AM T [facility] GFR >60 >=60 mL/min/1.7 3 sq meter 12/15/2024 2:08 AM [facility] Comment:eGFR calculated with 2020 CKD-EPI equation. Vegetarian diet, extremely high or low muscle mass, and may affect results. Cystatin C with Glomerular Filtration Rate is a suitable alternative for these patients. ANION GAP 12 5 - 20 mmol/L 12/15/2024 2:08 AM [facility] Blood Collection / Unknown 12/15/2024 1:30 AM CDT 12/15/2024 1:46 AM CDT Juan Erickson MD CHEMISTRY ORDERABLES Fin al Result [facility] # [id number] [address] [place] [address] * (ABNORMAL) URINE CULTURE (12/15/2024 12:00 AM CDT) URINE CULTURE SEE NOTE(A) [facility] Comment: CULTURE, URINE, ROUTINE Micro Number: [id number] Test Status: Final Specimen Source: Urine, clean catch Specimen Quality: Adequate Result: Greater than 100,000 CFU/mL of Escherichia coli E.coli INT ALVA AMOX/CLAVULANATE S 8 AMP/SULBACTAM S 4 CEFAZOLIN I 4 CEFEPIME S <=0.12 CEFTAZIDIME S <=0.5 CEFTRIAXONE S <=0.25 CIPROFLOXACIN S <=0.06 GENTAMICIN S <=1 IMIPENEM S <=0.25 LEVOFLOXACIN S <=0.12 MEROPENEM S <=0.25 NITROFURANTOIN S 32 PIP/TAZOBACTAM S <=4 TRIMETHOPRIM/SULFA S <=20 S = Susceptible I = Intermediate R = Resistant NS = Not susceptible SDD = Susceptible Dose Dependent * = Not Tested NR = Not Reported NN = See Therapy Comments Test Performed at: [facility] [address] [facility] Urine URINE SPECIMEN OBTAINED BY CLEAN CATCH PROCEDURE / Unknown 12/15/2024 12/16/2024 2:50 AM CDT Constance CALVILLOP MICROBIOLOGY - GENERAL O RDERABLES Final Result Performing Organization Address [facility] Co de Phone Number [facility] [phone] [facility] [address] * (ABNORMAL) C-REACTIVE PROTEIN (11/26/2024 11:50 AM CDT) Pathologist [facility] CRP 11.2(H) <8.0 mg/L [facility] Comment: Test Performed at: [facility] [address] [place] [id number] LayAnaid Maria MD Blood 11/26/2024 11:5 0 AM CDT 11/27/2024 2:45 AM CDT Constance CALVILLOP CHEMISTRY ORDERABLES Fin al Result Performing Organization Address [facility]/ZIP Co de Phone Number [facility] [phone] [facility] [address] * HEPATIC FUNCTION PANEL (11/26/2024 11:50 AM CDT) TOTAL PROTEIN 6.4 6.1 - 8.1 g/dL [facility] ALBUMIN 4.0 3.6 - 5.1 g/dL [facility] GLOBULIN 2.4 1.9 - 3.7 g/dL (calc) [facility] ALBUMIN/GLOBULIN RATIO 1.7 1.0 - 2.5 (calc) [facility] BILIRUBIN TOTAL 0.3 0.2 - 1.2 mg/dL [facility] BILIRUBIN DIRECT 0.0 < OR = 0.2 mg/dL [facility] Comment: Verified by repeat analysis. BILIRUBIN INDIRECT 0.3 0.2 - 1.2 mg/dL (calc) [facility] ALKALINE PHOSPHATASE 70 31 - 125 U/L [facility] AST 11 10 - 30 U/L [facility] ALT 13 6 - 29 U/L [facility] Comment: Test Performed at: [facility] [address] [place] [address] Avery Maria MD Blood 11/26/2024 11:5 0 AM CDT 11/27/2024 2:45 AM CDT us Constance Ahumada FLASH DRIER OPERATOR CHEMISTRY ORDERABLES Fin al Result Performing Organization Address [facility]/ZIP Co de Phone Number [facility] [phone] [facility] [address] [facility] [place] [address] * TRYPTASE (11/26/2024 11:49 AM CDT) TRYPTASE 5.9 <11.0 mcg/L [facility] Comment: Test Performed at: [facility] [address] [place] [address] Mukesh Cantu M.D.,PhD Blood 11/26/2024 11:4 9 AM CDT 11/27/2024 5:26 AM CDT us Triny Cantrell FLASH DRIER OPERATOR CHEMISTRY ORDERABLES Final Result [facility] [phone] [facility] [address] [place] [address] * HISTAMINE (11/26/2024 11:49 AM CDT) HISTAMINE <1.5 < OR = 1.8 ng/mL [facility], Comment: This test was performed using a kit that has not been cleared or approved by the FDA. The analytical performance characteristics of this test have been determined by [facility]. This test should not be used for diagnosis without confirmation by other medically established means. Test Performed at: [facility] [address] [place] [address] Holly Sparks MD,PhD,JALEN Blood 11/26/2024 11:4 9 AM CDT 11/27/2024 5:26 AM CDT Triny Cantrell [facility] CHEMISTRY ORDERABLES Final Result Performing Organization Address [facility] Co de Phone Number [facility] [phone] [facility], [address] [place] [address] from Last 3 Months Insurance [place] [facility] MEDICAID [facility] MEDICAID Care Teams 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
--- OUTSIDE RECORDS SUMMARY | 2025-02-17 05:31 | XMS_ITS | Clinical Summary ---
Author Organization [facility] Address [address] [address] [place] [address] Phone Care Team Providers Care [employer] Person Name Role Phone Non-Staff, Physician Primary Care Provider Unava ilable Allergies Active Allergy Reactions Criticality Noted Date Comments Ketorolac Tromethamine Other (See Comments) Low Causes indigestion Propoxyphene N-Acetaminophen Bradycardia High 04/10/2019 Medications acetaminophen (TYLENOL) 500 mg tablet Take 500 mg by mouth every 6 hours as needed. Active ibuprofen (MOTRIN) 200 mg tablet Take 3 Tablets (600 mg) by mouth every 8 hours as needed for Pain. 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 Gender Identity Not on file Sexual Orientation Not on file Last Filed Vital Signs Vital Sign Reading Time Taken Comments Blood Pressure 121/84 09/05/2020 10:00 PM CDT Pulse 58 11/14/2019 10:51 PM CDT Temperature 36.7 C (98.1 F) 09/05/2020 8:16 PM CDT Respiratory Rate 18 09/05/2020 10:00 PM CDT Oxygen Saturation 99% 09/05/2020 10:00 PM CDT Inhaled Oxygen Concentration - - Weight 68.5 kg (151 lb) 09/05/2020 8:16 PM CDT Height 167.6 cm (5' 6 ) 09/05/2020 8:16 PM CDT Body Mass Index 24.37 09/05/2020 8:16 PM CDT Plan of Treatment Health Maintenance Due Date Last Done Comments DTAP/TDAP/TD VACCINES (1 - Tdap) 2000 HEPATITIS B VACCINES (1 of 3 - 19+ 3-dose series) 06/27 HPV/Cotest (21-29) 2002 HPV VACCINES (1 - 3-dose SCDM series) 2008 CERVICAL CANCER SCREENING 07/23/2011 HPV/Cotest (30-65) 07/23/2011 PAP SMEAR 07/23/2011 BREAST CANCER SCREENING 2021 INFLUENZA VACCINE (#1) 2024 Care Teams [place] Floor Person Relationship Specialty Start Date End Date Non-Staff, Physician NO ADDRESS ON FILE PCP - General 07/21/19
--- NOTE | 2025-02-17 06:11 | W.ED.GENADLT ---
HPI - General Adult General: Chief complaint: Ear Stated complaint: Lymph nodes swollen, sore throat, LT ear pain, LIU Time Seen by Provider: 02/17/25 05:31 History of Present Illness: Patient is a 44-year-old female presenting with a chief complaint of right ear pain since Friday. Patient also has a tender swollen lymph node in her left neck. Patient is also a developed a sore throat and noted white spots in the back of her throat. She has not had a fever and denies malaise, chest pain, cough, shortness of breath, abdominal pain, nausea, vomiting, diarrhea or dysuria. She states that she was recently at a [employer] and was exposed to an acquaintance with respiratory sx. Related Data Home Medications ?Medication ?Instructions ?Recorded ?Confirmed hydrocodone 5 mg-acetaminophen 325 1 tab PO Q6H PRN 05/24/21 05/24/21 mg tablet Previous Rx's ?Medication ?Instructions ?Recorded lansoprazole 30 mg capsule,delayed 30 mg PO DAILY #30 caps 11/27/20 release (Prevacid) ondansetron HCl 4 mg tablet 4 mg PO Q6H PRN nausea and 11/27/20 (Zofran) vomiting #10 tabs cyclobenzaprine 10 mg tablet 10 mg PO TID #14 tabs 05/18/21 ibuprofen 800 mg tablet 800 mg PO Q8H PRN pain #20 tabs 05/18/21 methylprednisolone 4 mg tablets in See Rx Instructions PO .COMPLEX 05/18/21 a dose pack (Medrol (Timo)) #21 ea methylprednisolone 4 mg tablets in See Rx Instructions PO .COMPLEX 09/28/22 a dose pack #21 ea naproxen 500 mg tablet 500 mg PO BID PRN pain #20 tabs 09/28/22 tizanidine 4 mg capsule 4 mg PO Q8H PRN muscle spasticity 09/28/22 #20 caps dexamethasone 6 mg tablet 6 mg PO Q24H #7 tabs 01/11/24 amoxicillin 875 mg-potassium 1 tab PO BID 7 days #14 tabs 02/17/25 clavulanate 125 mg tablet Allergies Allergy/AdvReac Type Severity Reaction Status Date / Time propoxyphene (From Allergy ADR/ALGY-Pa Verified 01/09/24 07:31 Darvocet-N) lpitations PFS ED PFSH: Social History Smoking and tobacco/nicotine status: current every day tobacco/nicotine user Physical Exam Narrative: EXAM NARRATIVE: Vital signs were reviewed. Patient is alert and oriented. Patient is breathing comfortably, no increased WOB or accessory muscle use. SpO2 is above 95% on RA. TMs are normal b/l, no inflammation of the L ear canal or debris. No pain w/manipulation of the pinna. Patient has mild erythema of the posterior oropharynx and scattered white exudate. She has tender left sided cervical lymphadenopathy. Patient has clear lungs b/l, no rhonchi, wheezing or crackles. No hypotension or tachycardia. Abdomen is soft, nondistended and nontender. Patient is moving all extremities, no deformity or gross injury. No lower extremity edema or asymmetry. Course Vital Signs: Vital signs: Vital Signs Temperature 98.1 F 02/17/25 05:22 Pulse Rate 70 02/17/25 05:22 Respiratory Rate 18 02/17/25 05:22 Blood Pressure 141/95 02/17/25 05:22 Pulse Oximetry 98 02/17/25 05:22 Oxygen Delivery Me thod Room Air 02/17/25 05:22 MDM - General Adult Medical Decision Making 35-year-old female presenting with a chief complaint of left ear pain, sore throat, tender cervical lymphadenopathy for couple of days. Differential diagnosis includes, is limited to, strep pharyngitis, viral pharyngitis, otitis media, otitis externa, dental infection, other. On exam she is HemoCue stable nontoxic-appearing. Patient's presentation may be consistent with strep pharyngitis, treated empirically with Augmentin. She was given a dose of dexamethasone here for symptomatic relief. Patient was counseled on return precautions, advised on supportive care at home and discharged in stable condition with recommendation for outpatient follow-up. No radiology studies performed this visit Discharge Plan Discharge Patient Disposition: Home Clinical Impression: Pharyngitis Qualifiers: Pharyngitis/tonsillitis etiology: unspecified etiology Qualified Code(s): J02.9 - Acute pharyngitis, unspecified Condition: Stable Prescriptions: New amoxicillin-pot clavulanate 875-125 mg tablet 1 tab PO BID 7 Days Qty: 14 0RF No Action hydrocodone-acetaminophen 5-325 mg tablet 1 tab PO Q6H PRN cyclobenzaprine 10 mg tablet 10 mg PO TID Qty: 14 0RF ibuprofen 800 mg tablet 800 mg PO Q8H PRN (Reason: pain) Qty: 20 0RF Medrol (Timo) 4 mg tablets,dose pack See Rx Instructions .ROUTE .COMPLEX Qty: 21 0RF Rx Instructions: orally per package directions Prevacid 30 mg capsule,delayed release(DR/EC) 30 mg PO DAILY Qty: 30 0RF Zofran 4 mg tablet 4 mg PO Q6H PRN (Reason: nausea and vomiting) Qty: 10 0RF dexamethasone 6 mg tablet 6 mg PO Q24H Qty: 7 0RF Rx Instructions: for up to 10 days tizanidine 4 mg capsule 4 mg PO Q8H PRN (Reason: muscle spasticity) Qty: 20 0RF methylprednisolone 4 mg tablets,dose pack See Rx Instructions PO .COMPLEX Qty: 21 0RF Rx Instructions: orally per package directions naproxen 500 mg tablet 500 mg PO BID PRN (Reason: pain) Qty: 20 0RF Discharge Orders: Discharge ED (Routine); Ordered 02/17/25 Ordered By: Krysten Ansari Patient Instructions: Opioid Safety, Pain Management, Patient Portal & Mae Instructions, Sore Throat - Adult Activity Restrictions/Additional Instructions: Please continue to monitor your condition closely at home. Take Ibuprofen 400mg and Tylenol 500-1000mg every six hours for pain and inflammation. Start antibiotics as prescribed. If your condition worsens or additional concerns arise, please return promptly to the emergency department for reassessment. Follow up with your primary care doctor in one week. Print Language: Nepali Coding Level of Care Code ED Tool Maker Bench for Royer Bowman
[2025-02-17 06:21] VITALS: BP 141/95; PULSE 73; O2SAT 99
== END 2025-02-17 06:22 | disposition home or self-care (01) ==
PROVIDERS: Emergency Provider Emergency Medicine
DX: J02.9 Acute pharyngitis, unspecified (principal); Z72.0 Tobacco use
CPT/HCPCS: 99283; J8540